=== PATIENT | male | born 2005 | race Caucasian/White ===

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

== ENCOUNTER → 2023-03-14 | Outpatient (CLI) | payer OTHER, SELFPAY ==
--- OUTSIDE RECORDS SUMMARY | 2023-03-14 16:00 | XMS RPT_ITS | CCD ---
Author Name Unknown Address [address] [place] [address] Organization [facility] Care Team Providers Care Business Systems Advisor Name Role Phone Marvin Malik MD Primary Care Provider Faith BOAT WORKER.Arianna HUSTON Primary Care Provider ARIANNA CUEVAS Attending Unavailable FAITH, ARIANNA Primary Care Unavailable ARIANNA CUEVAS Referring Unavailable FAITH, ARIANNA Primary Care Unavailable ARIANNA CUEVAS Referring Unavailable FAITH, ARIANNA Primary Care Unavailable ARIANNA CUEVAS Attending Unavailable DAVE, MARVIN P Primary Care Unavailable DERRICK GASTELUM Attending Unavailable DAVE, MARVIN P Primary Care Unavailable DERRICK GASTELUM Attending Unavailable DAVE, MARVIN P Primary Care Unavailable RAJDERRICK SEGURA Attending Unavailable DAVE, MARVIN P Primary Care Unavailable DERRICK GASTELUM Attending Unavailable DAVE, MARVIN P Primary Care Unavailable RAJDERRICK SEGURA Attending Unavailable DAVE, MARVIN P Primary Care Unavailable RAJDERRICK SEGURA Attending Unavailable DAVE, MARVIN P Primary Care Unavailable ARIANNA CUEVAS Attending Unavailable FAITH, ARIANNA Primary Care Unavailable Medications Current Medications Medication Drug Class(es) Dates Sig (Normalized) Sig (Original) hydrocortisone 25 mg/ml topical cream (2 sources) Corticosteroid Start: 07-16-2022 End: 07-31-2022 hydrocortisone 2.5 % cream Indications: Rash Apply 1 application to affected area twice daily for 15 days. Location: 3rd and 4th finger right hand 20 g 1 07/16/2022 07/31/2022 Active Completed/Discontinued Medications Medication Drug Class(es) Dates Sig (Normalized) Sig (Original) ergocalciferol 1.25 mg oral capsule (5 sources) Provitamin D2 Compound Start: 07-22-2022 End: 09-24-2022 take 1 capsule by mouth every week ergocalciferol 50,000 unit capsule (VITAMIN D2, DRISDOL) Indications: Vitamin D deficiency Take 1 capsule by mouth one time a week. 12 capsule 1 09/24/2022 Active Problems Active Problems Problem Classification Problem Date Documented Da te Episodic/Chronic Allergic reactions (1 source) Dermatitis, unspecified; Translations: [Eczema, unspecified type] Onset: 12-31-2022 Episodic Anxiety disorders (20 sources) Generalized anxiety disorder; Translations: [Generalized anxiety disorder] Onset: 01-01-2013 Chronic Miscellaneous mental health disorders (17 sources) Eating disorder; Translations: [Eating disorder, unspecified] Onset: 04-26-2020 04-28-2020 Chronic Mood disorders (20 sources) Severe recurrent major depression without psychotic features; Translations: [Major depressive disorder, recurrent severe without psychotic features] Onset: 04-25-2020 Chronic Nutritional deficiencies (3 sources) Vitamin D deficiency; Translations: [Vitamin D deficiency, unspecified] Onset: 09-23-2022 Chronic Other aftercare (1 source) Patient encounter status; Translations: [Other fpc (current) drug therapy] Episodic Other skin disorders (1 source) Loss of hair; Translations: [Nonscarring hair loss, unspecified] Episodic Other skin disorders (1 source) Eruption; Translations: [Rash and other nonspecific skin eruption] Episodic Residual codes; unclassified (18 sources) Difficulty sleeping ; Translations: [Sleep disorder, unspecified] Onset: 04-26-2020 04-28-2020 Episodic Unclassified (1 source) NO SHOW Past or Other Problems Problem Classification Problem Date Documented Da te Episodic/Chronic Administrative/social admission (17 sources) School problem; Translations: [Problems related to education and literacy, unspecified] Onset: 04-26-2020 04-26-2020 Episodic Other aftercare (1 source) Other buttermaker (current) drug therapy; Translations: [Encounter for long-term (current) use of medications] Onset: 03-04-2022 Episodic Other connective tissue disease (17 sources) Pain in lower limb; Translations: [Pain in leg, unspecified] Onset: 11-18-2013 04-26-2020 Episodic Other skin disorders (1 source) Nonscarring hair loss, unspecified; Translations: [Hair loss] Onset: 07-16-2022 Episodic Residual codes; unclassified (1 source) Sleep disorder, unspecified; Translations: [Sleep difficulties] Onset: 04-28-2020 Episodic Results Test Name Value Interpretation Reference Range Facil ity Vital Signs Date Time Vital Sign Value Performing Clinician Shagufta rodriguez 10-18-2022 13:50-0400 Body height 175.3 cm Arianna Cuevas BOAT WORKER.[employer] Work Phone: [facility] 10-18-2022 13:50-0400 Body weight 60.78 kg Arianna Cuevas BOAT WORKER.[employer] Work Phone: [facility] 10-18-2022 13:50-0400 Diastolic blood pressure 66 mm[Hg] Arianna Cuevas BOAT WORKER.[employer] Work Phone: [facility] 10-18-2022 13:50-0400 Heart rate 64 /min Arianna Cuevas BOAT WORKER.[employer] Work Phone: [facility] 10-18-2022 13:50-0400 Respiratory rate 14 /min Arianna Cuevas BOAT WORKER.[employer] Work Phone: [facility] 10-18-2022 13:50-0400 Systolic blood pressure 102 mm[Hg] Arianna Cuevas BOAT WORKER.[employer] Work Phone: [facility] 07-16-2022 13:19-0400 Body weight 59.42 kg Arianna Cuevas BOAT WORKER.[employer] Work Phone: [facility] 07-16-2022 13:19-0400 Diastolic blood pressure 78 mm[Hg] Arianna Cuevas BOAT WORKER.[employer] Work Phone: [facility] 07-16-2022 13:19-0400 Heart rate 72 /min Arianna Cuevas BOAT WORKER.[employer] Work Phone: [facility] 07-16-2022 13:19-0400 Respiratory rate 16 /min Arianna Cuevas BOAT WORKER.[employer] Work Phone: [facility] 07-16-2022 13:19-0400 Systolic blood pressure 112 mm[Hg] Arianna Faith BOAT WORKER.[employer] Work Phone: [facility] Encounters Encounter Date Encounter Type Care Provider Facility Start: 12-31-2022 End: 01-01-2023 ambulatory ARIANNA CUEVAS Facility:[facility] Start: 10-18-2022 End: 10-19-2022 ambulatory ARIANNA CUEVAS Facility:[facility] Start: 10-18-2022 Encounter for genera l adult medical examination without abnormal findings ARIANNA CUEVAS [facility] Start: 10-18-2022 End: 10-18-2022 Patient encounter procedure Arianna Cuevas APRN.ROBEL Work Phone: [facility] Procedures Date Procedure Procedure Detail Performing Clinician Start: 07-01-2022 Follow-up visit Follow Up DERRICK GASTELUM Start: 06-04-2021 Adult depression screening assessment Derrick Gastelum APRN.[employer] Work Phone: Start: 05-22-2021 Adult depression screening assessment Derrick Gastelum APRN.[employer] Work Phone: Start: 05-08-2021 Adult depression screening assessment Derrick Gastelum APRN.[employer] Work Phone: Plan of Treatment Date Care Activity Detail Author Start: 08-30-2025 Urine microalbumin profile DTA P,TDAP,TD (7 - Td or Tdap) [facility] Start: 10-19-2023 COVID-19 VACCINE (#1) COVID-19 VACCI NE (#1) [facility] Immunizations Immunization Date Immunization Notes Care Provider Fa cility 07-07-2020 meningococcal polysaccharide (groups A, C, Y and W-135) diphtheria toxoid conjugate vaccine (MCV4P) Derrick Gastelum APRN.[employer] Work Phone: [facility] Work Phone: 07-07-2020 varicella virus vaccine Dillon Gastelum APRN.[employer] Work Phone: [facility] Work Phone: 08-31-2015 meningococcal polysaccharide (groups A, C, Y and W-135) diphtheria toxoid conjugate vaccine (MCV4P) Derrick Gastelum APRN.[employer] Work Phone: [facility] 08-31-2015 tetanus toxoid, redu saba diphtheria toxoid, and acellular pertussis vaccine, adsorbed Derrick Rajguru BOAT WORKER.[facility] Work Phone: [facility] 12-16-2013 influenza, live, intranasal, quadrivalent Derrick Rajguru BOAT WORKER.[facility] Work Phone: [facility] 12-10-2012 influenza virus vacc ine, live, attenuated, for intranasal use Derrick Rajguru BOAT WORKER.[facility] Work Phone: [facility] Work Phone: 01-03-2012 influenza virus vacc ine, live, attenuated, for intranasal use Derrick Rajguru BOAT WORKER.[facility] Work Phone: [facility] Work Phone: 12-08-2009 influenza virus vacc ine, live, attenuated, for intranasal use Derrick Rajguru BOAT WORKER.[facility] Work Phone: [facility] 01-04-2008 diphtheria, tetanus toxoids and acellular pertussis vaccine Derrick Rajguru BOAT WORKER.[facility] Work Phone: [facility] Work Phone: 01-04-2008 influenza virus vacc ine, live, attenuated, for intranasal use Derrick Rajguru BOAT WORKER.[facility] Work Phone: [facility] Work Phone: 01-04-2008 measles, mumps and rubella virus vaccine Derrick Rajguru BOAT WORKER.[facility] Work Phone: [facility] Work Phone: 01-04-2008 poliovirus vaccine, inactivated Derrick Rajguru BOAT WORKER.[facility] Work Phone: [facility] Work Phone: 01-06-2007 influenza virus vacc ine, unspecified formulation Derrick Rajguru BOAT WORKER.[facility] Work Phone: [facility] Work Phone: 01-06-2006 influenza virus vacc ine, unspecified formulation Derrick Rajguru BOAT WORKER.[facility] Work Phone: [facility] Work Phone: 01-17-2005 influenza virus vacc ine, unspecified formulation Derrick Gastelum BOAT WORKER.[facility] Work Phone: [facility] Work Phone: 04-23-2004 diphtheria, tetanus toxoids and acellular pertussis vaccine Derrick Gastelum BOAT WORKER.[facility] Work Phone: [facility] Work Phone: 04-23-2004 pneumococcal conjuga te vaccine, 7 valent Derrick Gastelum BOAT WORKER.[facility] Work Phone: [facility] Work Phone: 01-16-2004 haemophilus influenz ae type b vaccine, HbOC conjugate Derrick Gastelum BOAT WORKER.[facility] Work Phone: [facility] Work Phone: 01-16-2004 measles, mumps and rubella virus vaccine Derrick Gastelum BOAT WORKER.[facility] Work Phone: [facility] Work Phone: 01-16-2004 varicella virus vaccine Dillon Gastelum BOAT WORKER.[facility] Work Phone: [facility] Work Phone: 2003 pneumococcal conjuga te vaccine, 7 valent Derrick Gastelum BOAT WORKER.[facility] Work Phone: [facility] Work Phone: 2003 haemophilus influenz ae type b vaccine, HbOC conjugate Derrick Gastelum BOAT WORKER.[facility] Work Phone: [facility] Work Phone: 2003 DTaP-hepatitis B and poliovirus vaccine Derrick Gastelum BOAT WORKER.[facility] Work Phone: [facility] Work Phone: 2003 haemophilus influenz ae type b vaccine, HbOC conjugate Derrick Gastelum BOAT WORKER.[facility] Work Phone: [facility] Work Phone: 2003 diphtheria, tetanus toxoids and acellular pertussis vaccine Derrick Gastelum BOAT WORKER.[employer] Work Phone: [facility] Work Phone: 2003 pneumococcal conjuga te vaccine, 7 valent Derrick Gastelum BOAT WORKER.[facility] Work Phone: [facility] Work Phone: 2003 poliovirus vaccine, inactivated Derrick Gastelum BOAT WORKER.[facility] Work Phone: [facility] Work Phone: 2003 diphtheria, tetanus toxoids and acellular pertussis vaccine Derricknaomie Gastelum BOAT WORKER.[facility] Work Phone: [facility] Work Phone: 2003 haemophilus influenz ae type b vaccine, HbOC conjugate Derricknaomie Gastelum BOAT WORKER.[facility] Work Phone: [facility] Work Phone: 2003 pneumococcal conjuga te vaccine, 7 valent Derrick Gastelum BOAT WORKER.[facility] Work Phone: [facility] Work Phone: 2003 poliovirus vaccine, inactivated Derrick Gastelum BOAT WORKER.[facility] Work Phone: [facility] Work Phone: 2003 influenza virus vacc ine, unspecified formulation Derrick Gastelum BOAT WORKER.[facility] Work Phone: [facility] Work Phone: 2003 hepatitis B vaccine, pediatric or pediatric/adolescent dosage Derrick Olivaresru BOAT WORKER.[facility] Work Phone: [facility] Work Phone: 2003 hepatitis B vaccine, pediatric or pediatric/adolescent dosage Derrick Irajguru BOAT WORKER.[facility] Work Phone: [facility] Work Phone: Payers Date Payer Category Payer Unknown MMO MMO [employer] [id number] 2021-Present [phone] [address] [place] [address] PPO [id number] 2021 Unknown [id number] 2021 Unknown [id number] Social History Date Type Detail Facility Start: 02-04-2011 End: 04-05-2020 Tobacco smoking status NHIS Never smoked tobacco [facility] Work Phone: Start: 02-04-2011 End: 04-05-2020 Tobacco use and exposure Smokeless tobacco non-user [facility] Work Phone: Start: 04-20-2021 End: 10-18-2022 Alcohol intake Current non-drinker of alcohol (finding) [facility] Start: 04-05-2020 Tobacco Comment dad smokes inside [facility] Start: 2003 Sex Assigned At Male [facility] History of tobacco use Passive smoker [facility] Work Phone: Start: 07-01-2022 End: 10-18-2022 History of Social function [facility] Start: 07-01-2022 End: 10-18-2022 Tobacco use panel [facility] Adult Depression Screening Assessment 5 [facility] Start: 02-01-2021 Gender identity Identifies as male gender (finding) [facility] Start: 02-01-2021 Sexual orientation Choose not to dis close [facility] Do you belong to any clubs or organizations such as mormon groups, unions, fraternal or athletic groups, or school groups? No [facility] Are you now , , , , never or living with a partner? Refused [facility] How often to you hav e a drink containing alcohol? Never [facility] Do you feel stress - tense, restless, nervous, or anxious, or unable to sleep at night because your mind is troubled all the time - these days [OSQ] Very much [facility] (I/We) worried jose antonio er (my/our) food would run out before (I/we) got money to buy more. DK or Refused [facility] Clinical Notes 05-08-2021 to 12-31-2022 Arianna Cuevas APRN.ROBEL - 10/18/2022 1:48 PM EDTTelephone Encounter - Evita Bah RN - 09/24/2022 2:44 PM EDTTelephone Encounter - Arianna Cuevas APRN.CNP - 09/24/2022 2:02 PM EDT Note Date & Type Note Facility 12-31-2022 Note HNO ID: [id number] Author: Arianna Cuevas APRN.[employer] Service: ? Author Type: Nurse Practitioner Type: Progress Notes Filed: 12/31/2022 4:09 PM Note Text: Chief Complaint Patient presents with: Rash Follow Up: Eczema on finger HPI Chas Amanda is a 17 year old male who presents here today for Above Complaints.. Patient presents for eczema. Patient reports he has derm appt on January 24 but currently eczema is worsening on his hand Past medical history, appointments, medications, allergies reviewed. Previous Medical History PAST MEDICAL HISTORY Diagnosis Date Allergic rhinitis resolved Routine or ritual circumcision Strabismus correct with patch at age 1 Previous Surgical History PAST SURGICAL HISTORY Procedure Laterality Date CIRCUMCISION W/CLAMP/OTH DEV W/BLOCK Family History FAMILY HISTORY Problem Relation Age of Onset other (anxiety) Mother on medication Diabetes Father other (anxiety) Father on medication other (rheumatoid arthritis) Maternal Grandmother hands and L knee No Known Problems Maternal Grandfather Ovarian cancer Paternal Grandmother Methicillin-resistant Staphylococcus Aureus Paternal Grandmother Asthma Paternal Grandfather Patient Allergies ALLERGIES No Known Allergies Current Medications Current Outpatient Medications on File Prior to Visit Medication Sig ergocalciferol 50,000 unit capsule (VITAMIN D2, DRISDOL) Take 1 capsule by mouth one time a week. lamoTRIgine (LAMICTAL) 100 mg tablet Take 1 tablet by mouth once daily. No current facility-administered medications on file prior to visit. Social History Social History Tobacco Use Smoking status: Passive Smoke Exposure - Never Smoker Smokeless tobacco: Never Tobacco comments: dad smokes inside Vaping Use Vaping Use: Never used Substance Use Topics Alcohol use: No Drug use: No Review of Symptoms REVIEW OF SYSTEMS SEE HPI EXAM: BP 126/72 Pulse 64 Resp 12 Wt 62.6 kg (138 lb) BMI 20.38 kg/m? General Appearance: Well appearing, alert, in no acute distress, well-hydrated, well nourished.. Skin: Positives: Erythema: fingers, Rash: flaky plaque like rash to interwebbing of fingers. Red but no warmth, swelling, or drainage noted. . Health Maintenance List HPV Vaccine(1 - Male 2-dose series) Never done Meningococcal B Vaccine: Consider Based On Risk(1 of 2 - Patient Seeks Protection) Never done Hepatitis C Screening Never done HIV Screening Never done Influenza Vaccine(1) due on 10/18/2022 Covid-19 Vaccine(1) due on 10/19/2023 DTaP,Tdap,Td Vaccine(7 - Td or Tdap) due on 08/30/2025 Hepatitis B Vaccine Completed Meningococcal Conjugate Vaccine Completed ASSESSMENT/PLAN: 1. Eczema, unspecified type - ICD9: 692.9, ICD10: L30.9 - Topical steriod tx with Rx for steriod cream/ointment- see orders - discussed skin care of rash - follow up if symptoms persist or worsen. - BETAMETHASONE DIPROPIONATE 0.05 % TOPICAL OINTMENT Arianna Cuevas APRN.[employer] [facility] 10-18-2022 Note HNO ID: [id number] Author: Arianna Cuevas APRN.[employer] Service: ? Author Type: Nurse Practitioner Type: Progress Notes Filed: 10/18/2022 2:08 PM Note Text: Chief Complaint Patient presents with: [facility] HPI Chas Amanda is a 17 year old male who presents here today for Above Complaints.. Patient presents to establish care. Patient has not made an appointment with dermatology for rash and hair loss yet. Past medical history, appointments, medications, allergies reviewed. Previous Medical History PAST MEDICAL HISTORY Diagnosis Date Allergic rhinitis resolved Routine or ritual circumcision Strabismus correct with patch at age 1 Previous Surgical History PAST SURGICAL HISTORY Procedure Laterality Date CIRCUMCISION W/CLAMP/OTH DEV W/BLOCK Family History FAMILY HISTORY Problem Relation Age of Onset other (anxiety) Mother on medication Diabetes Father other (anxiety) Father on medication other (rheumatoid arthritis) Maternal Grandmother hands and L knee No Known Problems Maternal Grandfather Ovarian cancer Paternal Grandmother Methicillin-resistant Staphylococcus Aureus Paternal Grandmother Asthma Paternal Grandfather Patient Allergies ALLERGIES No Known Allergies Current Medications Current Outpatient Medications on File Prior to Visit Medication Sig ergocalciferol 50,000 unit capsule (VITAMIN D2, DRISDOL) Take 1 capsule by mouth one time a week. lamoTRIgine (LAMICTAL) 100 mg tablet Take 1 tablet by mouth once daily. No current facility-administered medications on file prior to visit. Social History Social History Tobacco Use Smoking status: Passive Smoke Exposure - Never Smoker Smokeless tobacco: Never Tobacco comments: dad smokes inside Vaping Use Vaping Use: Never used Substance Use Topics Alcohol use: No Drug use: No Review of Symptoms REVIEW OF SYSTEMS GENERAL: No weight loss, malaise or fevers HEENT: No changes in hearing or vision, no nose bleeds or other nasal problems NECK: Negative for lumps, goiter, pain and significant neck swelling RESPIRATORY: Negative for cough, hemoptysis, wheezing, COPD, dyspnea or shortness of breath CARDIOVASCULAR: Negative for chest pain, leg swelling, hypertension, CHF or palpitations GI: No nausea, vomiting, or diarrhea : No history of dysuria, frequency or incontinence MUSCULOSKELETAL: Negative for joint pain or swelling, back pain or muscle pain SKIN: Positive for rash: derm consult previously provided PSYCH: sleep fragmented, Positive for sleep disturbance: difficulty falling asleep and easily angered HEMATOLOGY/LYMPHOLOGY: Negative for prolonged bleeding, bruising easily or swollen nodes ENDOCRINE: Negative for cold or heat intolerance, polyuria, polydipsia and goiter NEURO: No history of headaches, syncope, paralysis, seizures or tremors EXAM: BP 102/66 Pulse 64 Resp 14 Ht 175.3 cm (5' 9 ) Wt 60.8 kg (134 lb) BMI 19.79 kg/m? General Appearance: Well appearing, alert, in no acute distress, well-hydrated, well nourished.. Skin: Skin color, texture, turgor normal, no suspicious rashes or lesions. Neck: Supple, no adenopathy; thyroid symmetric, normal size, no bruits. Lungs: Lungs clear to auscultation. No wheezing, rhonchi, rales.. Heart: RRR without murmur, gallop, or rubs. No ectopy. Abdomen: Normal abdominal exam, Abdomen soft, non-tender. Bowel sounds normal. No masses, organomegaly Extremities: No deformities, edema, skin discoloration, clubbing or cyanosis. Good capillary refill. . Peripheral Pulses: Normal. Neurologic: Gait normal. Reflexes normal and symmetric. Sensation grossly intact. Health Maintenance List HPV VACCINE(1 - Male 2-dose series) Never done MENINGOCOCCAL B: Consider based on risk(1 of 2 - Patient Seeks Protection) Never done HEPATITIS C SCREENING Never done HIV SCREENING Never done INFLUENZA(1) due on 10/18/2022 COVID-19 VACCINE(1) due on 10/19/2023 DTAP,TDAP,TD(7 - Td or Tdap) due on 08/30/2025 HEPATITIS B Completed MENINGOCOCCAL CONJUGATE Completed ASSESSMENT/PLAN: 1. ANIVAL (generalized anxiety disorder) - ICD9: 300.02, ICD10: F41.1 (primary diagnosis) -Follows with Derrick, patient encouraged to make an appointment. Noncompliant with medication 2. Bipolar 2 disorder (HCC) - ICD9: 296.89, ICD10: F31.81 -See #1 3. Sleep difficulties - ICD9: 780.50, ICD10: G47.9 -See #1 4. Wellness examination - ICD9: V70.0, ICD10: Z00.00 - Counseled on healthy diet and regular exercise - Depression screening tool completed and reviewed with patient. Based on score and interview, patient is already diagnosed with depression and recommended continuing current plan of care. - Follow up for annual exam in one year Arianna Cuevas APRN.[facility] 10-18-2022 History of Presen t illness Narrative Chief Complaint Patient presents with: [facility] Chas Amanda is a 17 year old male who presents here today for Above Complaints.. Patient presents to [facility]. Patient has not made an appointment with dermatology for rash and hair loss yet. Past medical history, appointments, medications, allergies reviewed. Previous Medical History PAST MEDICAL HISTORY Diagnosis Date Allergic rhinitis resolved Routine or ritual circumcision Strabismus correct with patch at age 1 Previous Surgical History PAST SURGICAL HISTORY Procedure Laterality Date CIRCUMCISION W/CLAMP/OTH DEV W/BLOCK Family History FAMILY HISTORY Problem Relation Age of Onset other (anxiety) Mother on medication Diabetes Father other (anxiety) Father on medication other (rheumatoid arthritis) Maternal Grandmother hands and L knee No Known Problems Maternal Grandfather Ovarian cancer Paternal Grandmother Methicillin-resistant Staphylococcus Aureus Paternal Grandmother Asthma Paternal Grandfather Patient Allergies ALLERGIES No Known Allergies Current Medications Current Outpatient Medications on File Prior to Visit Medication Sig ergocalciferol 50,000 unit capsule (VITAMIN D2, DRISDOL) Take 1 capsule by mouth one time a week. lamoTRIgine (LAMICTAL) 100 mg tablet Take 1 tablet by mouth once daily. No current facility-administered medications on file prior to visit. Social History Social History Tobacco Use Smoking status: Passive Smoke Exposure - Never Smoker Smokeless tobacco: Never Tobacco comments: dad smokes inside Vaping Use Vaping Use: Never used Substance Use Topics Alcohol use: No Drug use: No Review of Symptoms REVIEW OF SYSTEMS GENERAL: No weight loss, malaise or fevers HEENT: No changes in hearing or vision, no nose bleeds or other nasal problems NECK: Negative for lumps, goiter, pain and significant neck swelling RESPIRATORY: Negative for cough, hemoptysis, wheezing, COPD, dyspnea or shortness of breath CARDIOVASCULAR: Negative for chest pain, leg swelling, hypertension, CHF or palpitations GI: No nausea, vomiting, or diarrhea : No history of dysuria, frequency or incontinence MUSCULOSKELETAL: Negative for joint pain or swelling, back pain or muscle pain SKIN: Positive for rash: derm consult previously provided PSYCH: sleep fragmented, Positive for sleep disturbance: difficulty falling asleep and easily angered HEMATOLOGY/LYMPHOLOGY: Negative for prolonged bleeding, bruising easily or swollen nodes ENDOCRINE: Negative for cold or heat intolerance, polyuria, polydipsia and goiter NEURO: No history of headaches, syncope, paralysis, seizures or tremors EXAM: BP 102/66 Pulse 64 Resp 14 Ht 175.3 cm (5' 9 ) Wt 60.8 kg (134 lb) BMI 19.79 kg/m General Appearance: Well appearing, alert, in no acute distress, well-hydrated, well nourished.. Skin: Skin color, texture, turgor normal, no suspicious rashes or lesions. Neck: Supple, no adenopathy; thyroid symmetric, normal size, no bruits. Lungs: Lungs clear to auscultation. No wheezing, rhonchi, rales.. Heart: RRR without murmur, gallop, or rubs. No ectopy. Abdomen: Normal abdominal exam, Abdomen soft, non-tender. Bowel sounds normal. No masses, organomegaly Extremities: No deformities, edema, skin discoloration, clubbing or cyanosis. Good capillary refill. . Peripheral Pulses: Normal. Neurologic: Gait normal. Reflexes normal and symmetric. Sensation grossly intact. Health Maintenance List HPV VACCINE(1 - Male 2-dose series) Never done MENINGOCOCCAL B: Consider based on risk(1 of 2 - Patient Seeks Protection) Never done HEPATITIS C SCREENING Never done HIV SCREENING Never done INFLUENZA(1) due on 10/18/2022 COVID-19 VACCINE(1) due on 10/19/2023 DTAP,TDAP,TD(7 - Td or Tdap) due on 08/30/2025 HEPATITIS B Completed MENINGOCOCCAL CONJUGATE Completed ASSESSMENT/PLAN: 1. ANIVAL (generalized anxiety disorder) - ICD9: 300.02, ICD10: F41.1 (primary diagnosis) -Follows with Derrick, patient encouraged to make an appointment. Noncompliant with medication 2. Bipolar 2 disorder (HCC) - ICD9: 296.89, ICD10: F31.81 -See #1 3. Sleep difficulties - ICD9: 780.50, ICD10: G47.9 -See #1 4. Wellness examination - ICD9: V70.0, ICD10: Z00.00 - Counseled on healthy diet and regular exercise - Depression screening tool completed and reviewed with patient. Based on score and interview, patient is already diagnosed with depression and recommended continuing current plan of care. - Follow up for annual exam in one year Arianna Cuevas APRN.ROBEL documented in this encounter [facility] 09-24-2022 Miscellaneous Notes Formattin g of this note might be different from the original. Call placed to patient with no answer. Voicemail left for patient to return call and ask to speak to a triage nurse to receive provider message. Evita Bah, STUART Please let patient know his vitamin d has improved but is still low. I have sent another prescription. documented in this encounter [facility] 09-17-2022 Miscellaneous Notes Formattin g of this note might be different from the original. Notified pt/Mother of local Derm Providers and P#'s to contact to schedule. Once scheduled asked they notify the office so we can fax referral paperwork to there office. Concepción Chapa Ma documented in this encounter [facility] 07-22-2022 Miscellaneous Notes Formattin g of this note might be different from the original. Pt mother notified, has scheduled the lab appt in 8 weeks. Please send rx for Vitamin D to [facility]. Sandra Darling Ma Please let patient know his vitamin D level is low. Patient should start Vitamin D 50,000 international unit(s) once weekly for 8 weeks and we will recheck his labs in 8 weeks. This lab work has been ordered and can be completed on or around 09/21/2022 documented in this encounter [facility] 07-16-2022 Note HNO ID: [id number] Author: Arianna Cuevas APRN.ROBEL Service: ? Author Type: Nurse Practitioner Type: Progress Notes Filed: 07/16/2022 1:30 PM Note Text: Chief Complaint Patient presents with: Rash: Rash on right hand Hair Loss HPI Chas Amanda is a 17 year old male who presents here today for Above Complaints.. Patient presents today for hair loss and rash to right 3rd and 4th finger. Patient states the rash has been there since December. Patient tried steroid cream on it last week which did help. Patient reports receding hairline as well as hair loss. Past medical history, appointments, medications, allergies reviewed. Previous Medical History PAST MEDICAL HISTORY Diagnosis Date Allergic rhinitis resolved Routine or ritual circumcision Strabismus correct with patch at age 1 Previous Surgical History PAST SURGICAL HISTORY Procedure Laterality Date CIRCUMCISION W/CLAMP/OTH DEV W/BLOCK Family History FAMILY HISTORY Problem Relation Age of Onset other (anxiety) Mother on medication Diabetes Father other (anxiety) Father on medication other (rheumatoid arthritis) Maternal Grandmother hands and L knee No Known Problems Maternal Grandfather Ovarian cancer Paternal Grandmother Methicillin-resistant Staphylococcus Aureus Paternal Grandmother Asthma Paternal Grandfather Patient Allergies ALLERGIES No Known Allergies Current Medications Current Outpatient Medications on File Prior to Visit Medication Sig lamoTRIgine (LAMICTAL) 100 mg tablet Take 1 tablet by mouth once daily. No current facility-administered medications on file prior to visit. Social History Social History Tobacco Use Smoking status: Passive Smoke Exposure - Never Smoker Smokeless tobacco: Never Tobacco comments: dad smokes inside Vaping Use Vaping Use: Never used Substance Use Topics Alcohol use: No Drug use: No Review of Symptoms REVIEW OF SYSTEMS SEE HPI EXAM: BP 112/78 Pulse 72 Resp 16 Wt 59.4 kg (131 lb) General Appearance: Well appearing, alert, in no acute distress, well-hydrated, well nourished.. Skin: Positives: Rash: scaly dry rash to skin between 3rd and 4th finger. Receding hairline with patchy hair loss. . Health Maintenance List COVID-19 VACCINE(1) Never done HPV VACCINE(1 - Male 2-dose series) Never done MENINGOCOCCAL B: Consider based on risk(1 of 2 - Risk Bexsero 2-dose series) Never done HEPATITIS C SCREENING Never done HIV SCREENING Never done INFLUENZA(Season Ended) due on 10/18/2022 DTAP,TDAP,TD(7 - Td or Tdap) due on 08/30/2025 HEPATITIS B Completed MENINGOCOCCAL CONJUGATE Completed ASSESSMENT/PLAN: 1. Hair loss - ICD9: 704.00, ICD10: L65.9 (primary diagnosis) - CBC + DIFF - TSH BLD - T3 BLD - T4 FREE/FREE THYROX - VITAMIN D 25 HYDROXY - VITAMIN B7 (BIOTIN) - VITAMIN B12 BLOOD 2. Rash - ICD9: 782.1, ICD10: R21 - HYDROCORTISONE 2.5 % TOPICAL CREAM Arianna Cuevas APRN.[facility] 07-16-2022 History of Presen t illness Narrative Chief Complaint Patient presents with: Rash: Rash on right hand Hair Loss HPI Chas Amanda is a 17 year old male who presents here today for Above Complaints.. Patient presents today for hair loss and rash to right 3rd and 4th finger. Patient states the rash has been there since December. Patient tried steroid cream on it last week which did help. Patient reports receding hairline as well as hair loss. Past medical history, appointments, medications, allergies reviewed. Previous Medical History PAST MEDICAL HISTORY Diagnosis Date Allergic rhinitis resolved Routine or ritual circumcision Strabismus correct with patch at age 1 Previous Surgical History PAST SURGICAL HISTORY Procedure Laterality Date CIRCUMCISION W/CLAMP/OTH DEV W/BLOCK Family History FAMILY HISTORY Problem Relation Age of Onset other (anxiety) Mother on medication Diabetes Father other (anxiety) Father on medication other (rheumatoid arthritis) Maternal Grandmother hands and L knee No Known Problems Maternal Grandfather Ovarian cancer Paternal Grandmother Methicillin-resistant Staphylococcus Aureus Paternal Grandmother Asthma Paternal Grandfather Patient Allergies ALLERGIES No Known Allergies Current Medications Current Outpatient Medications on File Prior to Visit Medication Sig lamoTRIgine (LAMICTAL) 100 mg tablet Take 1 tablet by mouth once daily. No current facility-administered medications on file prior to visit. Social History Social History Tobacco Use Smoking status: Passive Smoke Exposure - Never Smoker Smokeless tobacco: Never Tobacco comments: dad smokes inside Vaping Use Vaping Use: Never used Substance Use Topics Alcohol use: No Drug use: No Review of Symptoms REVIEW OF SYSTEMS SEE HPI EXAM: BP 112/78 Pulse 72 Resp 16 Wt 59.4 kg (131 lb) General Appearance: Well appearing, alert, in no acute distress, well-hydrated, well nourished.. Skin: Positives: Rash: scaly dry rash to skin between 3rd and 4th finger. Receding hairline with patchy hair loss. . Health Maintenance List COVID-19 VACCINE(1) Never done HPV VACCINE(1 - Male 2-dose series) Never done MENINGOCOCCAL B: Consider based on risk(1 of 2 - Risk Bexsero 2-dose series) Never done HEPATITIS C SCREENING Never done HIV SCREENING Never done INFLUENZA(Season Ended) due on 10/18/2022 DTAP,TDAP,TD(7 - Td or Tdap) due on 08/30/2025 HEPATITIS B Completed MENINGOCOCCAL CONJUGATE Completed ASSESSMENT/PLAN: 1. Hair loss - ICD9: 704.00, ICD10: L65.9 (primary diagnosis) - CBC + DIFF - TSH BLD - T3 BLD - T4 FREE/FREE THYROX - VITAMIN D 25 HYDROXY - VITAMIN B7 (BIOTIN) - VITAMIN B12 BLOOD 2. Rash - ICD9: 782.1, ICD10: R21 - HYDROCORTISONE 2.5 % TOPICAL CREAM Arianna Cuevas APRN.ROBEL documented in this encounter [facility] 07-01-2022 Note HNO ID: [id number] Author: Derrick Gastelum APRN.ROBEL Service: ? Author Type: Nurse Practitioner Type: Progress Notes Filed: 07/01/2022 10:35 PM Note Text: PSYC FOLLOW UP - PSYCHIATRIC PROGRESS NOTE DIAGNOSIS: Bipolar 2 disorder Generalized Anxiety Disorder GAF: -60-51 Moderate symptoms or moderate difficulty in social, occupational or school functioning. TREATMENT PLAN: Increase Lamictal to address mood related symptoms. Utilize hydroxyzine as needed to help with anxiety symptoms. Patient would like to be assessed for ADHD. Referral provided to transfer psychiatric care to the community. Medication Update: Lamictal 100 mg - take 1 tablet once daily. Continue hydroxyzine as needed. The effects and side effects of all the medications were reviewed in detail with the patient. He is aware of the rash side effect related to Lamictal. Patient is in agreement with the treatment plan and aware to reach out with any questions, concerns, or worsening of symptoms prior to the next appointment. CC: Follow up for psychiatric medication management With the patient consent, visit was performed virtually. I have communicated my name and active licensure. The patient's identity and physical location were verified at the time of this visit. Either the patient or their legal customer operations representative has been informed of the risks and benefits of -- and alternatives to -- treatment through a remote evaluation and consents to proceed with the evaluation remotely. HPI: Chas Amanda is a 17 year old Male with a history of Bipolar 2 disorder and ANIVAL presenting today for follow-up. Date of last visit: 06/03/2022 Plan from last visit: Increase Lamictal to address his mood related symptoms. Utilize hydroxyzine as needed to manage anxiety. Follow up in 4 weeks. Today Chas shares that he is doing well. He has not increased the Lamictal to 100 mg dose yet. He has been better at remembering to take the Lamictal 75 mg dose. He has been taking that for over 2 weeks. In agreement to try a higher dose of Lamictal. He denies any side effects from the Lamictal. Has not needed to use the hydroxyzine. He is going to sleep earlier and wakes up around 8 to 10 am. He has been playing basketball and continues to enjoy playing video games with his friends. He is still working on getting his social security card. This is a barrier to him getting a job and license. Shares that his father has been upset about the situation but mother has been okay. Reports that his appetite decreased for a short time but it has normalized. Feels that when his mood is low, his appetite decrease. He has talked to his parents about his desire to be tested for ADHD. His father has been diagnosed and treated for ADHD. Interval Progress: Slightly Improved Risks and benefits of the medication, including any black box warnings, were discussed with the patient. Social History: See HPI PATIENT DATA: Generalized Anxiety Disorder Scale (ANIVAL-7) ANIVAL - 7 SCORES 05/06/2022 06/03/2022 07/01/2022 ANIVAL-7 Score 21 20 19 (0-4) minimal anxiety, (5-9) mild anxiety, (10-14) moderate anxiety, (15-21) severe anxiety Patient Health Questionnaire (PHQ-9) PHQ-9 05/06/2022 06/03/2022 07/01/2022 Score 22 21 20 (0-4) minimal depression, (5-9) mild depression, (10-14) moderate depression, (15-19) moderately severe depression, (20-27) severe depression ROS: See HPI General: Negative for fever, malaise, unintentional weight loss HEENT: Negative for recent changes in vision or hearing, no nasal drainage Respiratory: Negative for cough, wheezing or SOB Cardiovascular: Negative for chest pain GI: Negative for nausea, vomiting, change in bowel habits MUSCULOSKELETAL: Negative for acute back or joint pain SKIN: Negative for rash NEURO: Negative for headaches, seizures, focal neurological deficits All other systems negative. VITAL SIGNS: BP Temp Pulse Resp SpO2 MENTAL STATUS EXAMINATION: Appearance: Appropriately groomed, appears stated age Behavior: Appropriately engaged Psychomotor: No psychomotor agitation Cognition Level of Consciousness: Awake and alert. No fluctuation in wakefulness. Orientation: Grossly oriented Memory: Intact Attention/Concentration: Good Fund of Knowledge: Able to demonstrate an awareness of current events. Mood: Sad Affect: Congruent to mood Speech/Language: Appropriate tone, prosody, noé, phonetics, and syntax Thought Form: Goal-directed. No loosening of associations. Thought Content: No delusions noted or endorsed. Perceptual Disturbances: Did not appear to respond to auditory stimuli. Safety: Suicidal Ideations: No suicidal ideation, intent or plan. Homicidal Ideations: No homicidal ideation, intent or plan. Insight: Appropriate Judgment: Appropriate I spent a total of 28 minutes on the date of the service which included preparing to see the patient, [id number] patien (more content not included)... [facility] 07-01-2022 History of Presen t illness Narrative Images from the original note were not included. PSYC FOLLOW UP - PSYCHIATRIC PROGRESS NOTE DIAGNOSIS: Bipolar 2 disorder Generalized Anxiety Disorder GAF: -60-51 Moderate symptoms or moderate difficulty in social, occupational or school functioning. TREATMENT PLAN: Increase Lamictal to address mood related symptoms. Utilize hydroxyzine as needed to help with anxiety symptoms. Patient would like to be assessed for ADHD. Referral provided to transfer psychiatric care to the community. Medication Update: Lamictal 100 mg - take 1 tablet once daily. Continue hydroxyzine as needed. The effects and side effects of all the medications were reviewed in detail with the patient. He is aware of the rash side effect related to Lamictal. Patient is in agreement with the treatment plan and aware to reach out with any questions, concerns, or worsening of symptoms prior to the next appointment. CC: Follow up for psychiatric medication management With the patient consent, visit was performed virtually. I have communicated my name and active licensure. The patient's identity and physical location were verified at the time of this visit. Either the patient or their legal customer operations representative has been informed of the risks and benefits of -- and alternatives to -- treatment through a remote evaluation and consents to proceed with the evaluation remotely. HPI: Chas Amanda is a 17 year old Male with a history of Bipolar 2 disorder and ANIVAL presenting today for follow-up. Date of last visit: 06/03/2022 Plan from last visit: Increase Lamictal to address his mood related symptoms. Utilize hydroxyzine as needed to manage anxiety. Follow up in 4 weeks. Today Chas shares that he is doing well. He has not increased the Lamictal to 100 mg dose yet. He has been better at remembering to take the Lamictal 75 mg dose. He has been taking that for over 2 weeks. In agreement to try a higher dose of Lamictal. He denies any side effects from the Lamictal. Has not needed to use the hydroxyzine. He is going to sleep earlier and wakes up around 8 to 10 am. He has been playing basketball and continues to enjoy playing video games with his friends. He is still working on getting his social security card. This is a barrier to him getting a job and license. Shares that his father has been upset about the situation but mother has been okay. Reports that his appetite decreased for a short time but it has normalized. Feels that when his mood is low, his appetite decrease. He has talked to his parents about his desire to be tested for ADHD. His father has been diagnosed and treated for ADHD. Interval Progress: Slightly Improved Risks and benefits of the medication, including any black box warnings, were discussed with the patient. Social History: See HPI PATIENT DATA: Generalized Anxiety Disorder Scale (ANIVAL-7) ANIVAL - 7 SCORES 05/06/2022 06/03/2022 07/01/2022 ANIVAL-7 Score 21 20 19 (0-4) minimal anxiety, (5-9) mild anxiety, (10-14) moderate anxiety, (15-21) severe anxiety Patient Health Questionnaire (PHQ-9) PHQ-9 05/06/2022 06/03/2022 07/01/2022 Score 22 21 20 (0-4) minimal depression, (5-9) mild depression, (10-14) moderate depression, (15-19) moderately severe depression, (20-27) severe depression ROS: See HPI General: Negative for fever, malaise, unintentional weight loss HEENT: Negative for recent changes in vision or hearing, no nasal drainage Respiratory: Negative for cough, wheezing or SOB Cardiovascular: Negative for chest pain GI: Negative for nausea, vomiting, change in bowel habits MUSCULOSKELETAL: Negative for acute back or joint pain SKIN: Negative for rash NEURO: Negative for headaches, seizures, focal neurological deficits All other systems negative. VITAL SIGNS: BP Temp Pulse Resp SpO2 MENTAL STATUS EXAMINATION: Appearance: Appropriately groomed, appears stated age Behavior: Appropriately engaged Psychomotor: No psychomotor agitation Cognition Level of Consciousness: Awake and alert. No fluctuation in wakefulness. Orientation: Grossly oriented Memory: Intact Attention/Concentration: Good Fund of Knowledge: Able to demonstrate an awareness of current events. Mood: Sad Affect: Congruent to mood Speech/Language: Appropriate tone, prosody, noé, phonetics, and syntax Thought Form: Goal-directed. No loosening of associations. Thought Content: No delusions noted or endorsed. Perceptual Disturbances: Did not appear to respond to auditory stimuli. Safety: Suicidal Ideations: No suicidal ideation, intent or plan. Homicidal Ideations: No homicidal ideation, intent or plan. Insight: Appropriate Judgment: Appropriate I spent a total of 28 minutes on the date of the service which included preparing to see the patient, [id number] patient care, completing clinical documentation, and counseling and educating the patient/family/caregiver, ordering medications/labs, and communicating with other healthcare providers. Derrick Gastelum APRN.CNP July 01, 2022 4:08 PM This note was partially generated using [employer] voice recognition system. Note was reviewed for accuracy. There may be minor misspellings or grammar miscues with [employer] voice recognition. documented in this encounter [facility] 06-03-2022 Note HNO ID: [id number] Author: Derrick Gastelum APRN.CNP Service: ? Author Type: Nurse Practitioner Type: Progress Notes Filed: 06/07/2022 10:38 PM Note Text: PSYC FOLLOW UP - PSYCHIATRIC PROGRESS NOTE DIAGNOSIS: Bipolar 2 disorder Generalized Anxiety Disorder GAF: -60-51 Moderate symptoms or moderate difficulty in social, occupational or school functioning. TREATMENT PLAN: Increase Lamictal to address his mood related symptoms. Utilize hydroxyzine as needed to manage anxiety. Follow up in 4 weeks. Medication Update: Lamictal 100 mg - take 1 tablet once daily 2. Continue Hydroxyzine as needed. The effects and side effects of all the medications were reviewed in detail with the patient. He is aware of the rash side effect related to Lamictal. Patient is in agreement with the treatment plan and aware to reach out with any questions, concerns, or worsening of symptoms prior to the next appointment. CC: Follow up regarding mood and anxiety. With the patient consent, visit was performed virtually. I have communicated my name and active licensure. The patient's identity and physical location were verified at the time of this visit. Either the patient or their legal customer operations representative has been informed of the risks and benefits of -- and alternatives to -- treatment through a remote evaluation and consents to proceed with the evaluation remotely. HPI: Chas Amanda is a 17 year old Male with a history of ANIVAL and Bipolar disorder presenting today for follow-up. Date of last visit: 05/06/2022 Plan from last visit: Increase Lamictal gradually to address mood related symptoms. Utilize hydroxyzine as needed to manage anxiety symptoms. Utilize melatonin to help with sleep quality. 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 Follow up in 4 weeks. Today Chas shares that he is doing well. 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 He has been more consistent in taking the Lamictal. He has not increased the Lamictal over 50 mg. Tolerating it without side effects. He is in agreement to try a higher dose. Uses hydroxyzine as needed to help with anxiety symptoms. He is going to the gym once a week. Plays basketball every day. One of his friend joins him when he is not working. He plays video games with friends and talks to them online. Denies any intrusive negative thoughts currently. His father still wants him to get a job. Has not talked to mom lately. They were slightly mad at him for losing the social security card. He has been having a hard time focusing on one thing at a time. He gets side tracked easily. Has a hard time retaining information. He gets distracted easily. I have always had a forgetful mind . Shares that it has been especially worse in the past month. He denies any substance use. He shares that his appetite has been very low. He had 3 pancakes with syrup and water for breakfast. His snack is chips usually. He had pizza last night with pepperoni and cheese. Interval Progress: Slightly improved Risks and benefits of the medication, including any black box warnings, were discussed with the patient. Social History: See HPI PATIENT DATA: Generalized Anxiety Disorder Scale (ANIVAL-7) ANIVAL - 7 SCORES 03/27/2022 05/06/2022 06/03/2022 ANIVAL-7 Score 21 21 20 (0-4) minimal anxiety, (5-9) mild anxiety, (10-14) moderate anxiety, (15-21) severe anxiety Patient Health Questionnaire (PHQ-9) PHQ-9 03/27/2022 05/06/2022 06/03/2022 Score 22 22 21 (0-4) minimal depression, (5-9) mild depression, (10-14) moderate depression, (15-19) moderately severe depression, (20-27) severe depression ROS: See HPI General: Negative for fever, malaise, unintentional weight loss HEENT: Negative for recent changes in vision or hearing, no nasal drainage Respiratory: Negative for cough, wheezing or SOB Cardiovascular: Negative for chest pain GI: Negative for nausea, vomiting, change in bowel habits MUSCULOSKELETAL: Negative for acute back or joint pain SKIN: Negative for rash NEURO: Negative for headaches, seizures, focal neurological deficits All other systems negative. VITAL SIGNS: BP Temp Pulse Resp SpO2 MENTAL STATUS EXAMINATION: Appearance: Appropriately groomed, appears stated age Behavior: Appropriately engaged Psychomotor: No psychomotor agitation Cognition Level of Consciousness: Awake and alert. No fluctuation in wakefulness. Orientation: Grossly oriented Memory: Intact Attention/Concentration: Good Fund of Knowledge: Able to demonstrate an awareness of current events. Mood: Sad Affect: congruent to mood Speech/Language: Appropriate tone, prosody, noé, phonetics, and syntax Thought Form: Goal-directed. No loosening of associations. Thought Content: No delusions noted or endor (more content not included)... [facility] 06-03-2022 History of Presen t illness Narrative Images from the original note were not included. PSYC FOLLOW UP - PSYCHIATRIC PROGRESS NOTE DIAGNOSIS: Bipolar 2 disorder Generalized Anxiety Disorder GAF: -60-51 Moderate symptoms or moderate difficulty in social, occupational or school functioning. TREATMENT PLAN: Increase Lamictal to address his mood related symptoms. Utilize hydroxyzine as needed to manage anxiety. Follow up in 4 weeks. Medication Update: Lamictal 100 mg - take 1 tablet once daily 2. Continue Hydroxyzine as needed. The effects and side effects of all the medications were reviewed in detail with the patient. He is aware of the rash side effect related to Lamictal. Patient is in agreement with the treatment plan and aware to reach out with any questions, concerns, or worsening of symptoms prior to the next appointment. CC: Follow up regarding mood and anxiety. With the patient consent, visit was performed virtually. I have communicated my name and active licensure. The patient's identity and physical location were verified at the time of this visit. Either the patient or their legal customer operations representative has been informed of the risks and benefits of -- and alternatives to -- treatment through a remote evaluation and consents to proceed with the evaluation remotely. HPI: Chas Amanda is a 17 year old Male with a history of ANIVAL and Bipolar disorder presenting today for follow-up. Date of last visit: 05/06/2022 Plan from last visit: Increase Lamictal gradually to address mood related symptoms. Utilize hydroxyzine as needed to manage anxiety symptoms. Utilize melatonin to help with sleep quality. 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 Follow up in 4 weeks. Today Chas shares that he is doing well. 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 He has been more consistent in taking the Lamictal. He has not increased the Lamictal over 50 mg. Tolerating it without side effects. He is in agreement to try a higher dose. Uses hydroxyzine as needed to help with anxiety symptoms. He is going to the gym once a week. Plays basketball every day. One of his friend joins him when he is not working. He plays video games with friends and talks to them online. Denies any intrusive negative thoughts currently. His father still wants him to get a job. Has not talked to mom lately. They were slightly mad at him for losing the social security card. He has been having a hard time focusing on one thing at a time. He gets side tracked easily. Has a hard time retaining information. He gets distracted easily. I have always had a forgetful mind . Shares that it has been especially worse in the past month. He denies any substance use. He shares that his appetite has been very low. He had 3 pancakes with syrup and water for breakfast. His snack is chips usually. He had pizza last night with pepperoni and cheese. Interval Progress: Slightly improved Risks and benefits of the medication, including any black box warnings, were discussed with the patient. Social History: See HPI PATIENT DATA: Generalized Anxiety Disorder Scale (ANIVAL-7) ANIVAL - 7 SCORES 03/27/2022 05/06/2022 06/03/2022 ANIVAL-7 Score 21 21 20 (0-4) minimal anxiety, (5-9) mild anxiety, (10-14) moderate anxiety, (15-21) severe anxiety Patient Health Questionnaire (PHQ-9) PHQ-9 03/27/2022 05/06/2022 06/03/2022 Score 22 22 21 (0-4) minimal depression, (5-9) mild depression, (10-14) moderate depression, (15-19) moderately severe depression, (20-27) severe depression ROS: See HPI General: Negative for fever, malaise, unintentional weight loss HEENT: Negative for recent changes in vision or hearing, no nasal drainage Respiratory: Negative for cough, wheezing or SOB Cardiovascular: Negative for chest pain GI: Negative for nausea, vomiting, change in bowel habits MUSCULOSKELETAL: Negative for acute back or joint pain SKIN: Negative for rash NEURO: Negative for headaches, seizures, focal neurological deficits All other systems negative. VITAL SIGNS: BP Temp Pulse Resp SpO2 MENTAL STATUS EXAMINATION: Appearance: Appropriately groomed, appears stated age Behavior: Appropriately engaged Psychomotor: No psychomotor agitation Cognition Level of Consciousness: Awake and alert. No fluctuation in wakefulness. Orientation: Grossly oriented Memory: Intact Attention/Concentration: Good Fund of Knowledge: Able to demonstrate an awareness of current events. Mood: Sad Affect: congruent to mood Speech/Language: Appropriate tone, prosody, noé, phonetics, and syntax Thought Form: Goal-directed. No loosening of associations. Thought Content: No delusions noted or endorsed. Perceptual Disturbances: Did not appear to respond to auditory stimuli. Safety: Suicidal Ideations: No suicidal ideation, intent or plan. Homicidal Ideations: No homicidal ideation, intent or plan. Insight: Appropriate Judgment: Appropriate I spent a total of 28 minutes on the date of the service which included preparing to see the patient, [id number] patient care, completing clinical documentation, and counseling and educating the patient/family/caregiver, ordering medications/labs. Derrick Gastelum APRN.[facility] June 03, 2022 4:34 PM This note was partially generated using Dragon voice recognition system. Note was reviewed for accuracy. There may be minor misspellings or grammar miscues with [employer] voice recognition. documented in this encounter [facility] 05-06-2022 Instructions Derrick Gastelum APRN.CNP - 05/06/2022 6:59 PM EDT Benjamin Doherty, It was good to talk with you today. Below is a summary of the plan that we discussed during your appointment for reference. Of course, if you have any questions or concerns do not hesitate to reach out to me via a message or call. Best, Derrick Gastelum APRN.CNP PLAN AND FOLLOW UP: YOU SHOULD SEEK IMMEDIATE MEDICAL ATTENTION AT THE NEAREST EMERGENCY DEPARTMENT OR BY CALLING 911, IF ANY OF THE FOLLOWING OCCURS: - New or worsening thoughts of harming yourself (suicidal thoughts) or others (homicidal thoughts) - Not feeling safe at home or worrying about your ability to remain safe at home If you are having thoughts of harming yourself or others, then you can: - Call the National Suicide Hotline at 7-907-AIXMJGS ( ) or 3-776-440-TALK (4032) - Text 4HIRZ to 845005 Medication Update: Lamictal 25 mg - take 2 tablets once daily for 14 days, then take 3 tablets once daily after that. 2. Utilize Hydroxyzine at the same dose as needed to address anxiety symptoms. Next appointment: --Schedule in 4 weeks or sooner if needed -- You may call the department appointment line at [phone] to schedule your appointment. -- Please call my nurse Renee at [phone] or send me a message in Know[employer] with any questions or concerns between appointments. documented in this encounter [facility] 05-06-2022 Note HNO ID: [id number] Author: Derrick Gastelum APRN.CNP Service: ? Author Type: Nurse Practitioner Type: Progress Notes Filed: 05/06/2022 7:00 PM Note Text: PSYC FOLLOW UP - PSYCHIATRIC PROGRESS NOTE DIAGNOSIS: Bipolar 2 disorder Generalized Anxiety Disorder GAF: -60-51 Moderate symptoms or moderate difficulty in social, occupational or school functioning. TREATMENT PLAN: Increase Lamictal gradually to address mood related symptoms. Utilize hydroxyzine as needed to manage anxiety symptoms. Utilize melatonin to help with sleep quality. 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 Follow up in 4 weeks. Medication Update: Lamictal 25 mg - take 2 tablets once daily for 14 days, then take 3 tablets once daily after that. 2. Utilize Hydroxyzine at the same dose as needed to address anxiety symptoms. The effects and side effects of all the medications were reviewed in detail with the patient. He is aware of the rash side effect associated with Lamictal. Patient is in agreement with the treatment plan and aware to reach out with any questions, concerns, or worsening of symptoms prior to the next appointment. CC: Follow up regarding mood and anxiety With the patient consent, visit was performed virtually. I have communicated my name and active licensure. The patient's identity and physical location were verified at the time of this visit. Either the patient or their legal customer operations representative has been informed of the risks and benefits of -- and alternatives to -- treatment through a remote evaluation and consents to proceed with the evaluation remotely. HPI: Chas Amanda is a 17 year old Male with a history of Bipolar disorder and ANIVAL presenting today for follow-up. Date of last visit: 03/27/2022 Plan from last visit: Start Lamictal to address his mood related symptoms. Continue hydroxyzine as needed to help with anxiety. Follow up in 6 weeks. Today Chas shares that he is doing okay. He feels that Lamictal is helping with his mood. He has a hard time taking the medication consistently. He has not increased it more than 25 mg yet. He has not missed it more than 2 days in the row. He has noticed that his sadness has improved. It feels a little bit better . Denies any intense suicidal thoughts. He would like to try to go to sleep earlier. He is getting 7 to 8 hours of sleep. He would like to try melatonin and is going to ask his mother to get the medication for him. He has not been able to work. 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 He needs to pass the written portion and practice driving. Feels that parents are too busy. We discussed patient being more proactive regarding this. He has been spending his time playing video games. He goes out to play basketball at the gym with a friend. His friends are usually working 2nd shift and it is hard to get together with them. Has only taken hydroxyzine 4 times since last visit as anxiety has been more manageable. Interval Progress: Slightly improved Risks and benefits of the medication, including any black box warnings, were discussed with the patient. Social History: See HPI PATIENT DATA: Generalized Anxiety Disorder Scale (ANIVAL-7) ANIVAL - 7 SCORES 03/03/2022 03/27/2022 05/06/2022 ANIVAL-7 Score 21 21 21 (0-4) minimal anxiety, (5-9) mild anxiety, (10-14) moderate anxiety, (15-21) severe anxiety Patient Health Questionnaire (PHQ-9) PHQ-9 03/03/2022 03/27/2022 05/06/2022 Score 21 22 22 (0-4) minimal depression, (5-9) mild depression, (10-14) moderate depression, (15-19) moderately severe depression, (20-27) severe depression ROS: See HPI General: Negative for fever, malaise, unintentional weight loss HEENT: Negative for recent changes in vision or hearing, no nasal drainage Respiratory: Negative for cough, wheezing or SOB Cardiovascular: Negative for chest pain GI: Negative for nausea, vomiting, change in bowel habits MUSCULOSKELETAL: Negative for acute back or joint pain SKIN: Negative for rash NEURO: Negative for headaches, seizures, focal neurological deficits All other systems negative. VITAL SIGNS: BP Temp Pulse Resp SpO2 MENTAL STATUS EXAMINATION: Appearance: Appropriately groomed, appears stated age Behavior: Appropriately engaged Psychomotor: No psychomotor agitation Cognition Level of Consciousness: Awake and alert. No fluctuation in wakefulness. Orientation: Grossly oriented Memory: Intact Attention/Concentration: Good Fund of Knowledge: Able to demonstrate an awareness of current events. Mood: Sad Affect: Congruent to mood Speech/Language: Appropriate tone, prosody, noé, phonetics, and syntax Thought Form: Goal-directed. No loosening of associations. Thought Content: No delusions noted or endorsed. Perceptual Disturbances: Did not appear to respond to auditory stimuli. (more content not included)... [facility] 05-06-2022 History of Presen t illness Narrative Images from the original note were not included. PSYC FOLLOW UP - PSYCHIATRIC PROGRESS NOTE DIAGNOSIS: Bipolar 2 disorder Generalized Anxiety Disorder GAF: -60-51 Moderate symptoms or moderate difficulty in social, occupational or school functioning. TREATMENT PLAN: Increase Lamictal gradually to address mood related symptoms. Utilize hydroxyzine as needed to manage anxiety symptoms. Utilize melatonin to help with sleep quality. 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 Follow up in 4 weeks. Medication Update: Lamictal 25 mg - take 2 tablets once daily for 14 days, then take 3 tablets once daily after that. 2. Utilize Hydroxyzine at the same dose as needed to address anxiety symptoms. The effects and side effects of all the medications were reviewed in detail with the patient. He is aware of the rash side effect associated with Lamictal. Patient is in agreement with the treatment plan and aware to reach out with any questions, concerns, or worsening of symptoms prior to the next appointment. CC: Follow up regarding mood and anxiety With the patient consent, visit was performed virtually. I have communicated my name and active licensure. The patient's identity and physical location were verified at the time of this visit. Either the patient or their legal customer operations representative has been informed of the risks and benefits of -- and alternatives to -- treatment through a remote evaluation and consents to proceed with the evaluation remotely. HPI: Chas Amanda is a 17 year old Male with a history of Bipolar disorder and ANIVAL presenting today for follow-up. Date of last visit: 03/27/2022 Plan from last visit: Start Lamictal to address his mood related symptoms. Continue hydroxyzine as needed to help with anxiety. Follow up in 6 weeks. Today Chas shares that he is doing okay. He feels that Lamictal is helping with his mood. He has a hard time taking the medication consistently. He has not increased it more than 25 mg yet. He has not missed it more than 2 days in the row. He has noticed that his sadness has improved. It feels a little bit better . Denies any intense suicidal thoughts. He would like to try to go to sleep earlier. He is getting 7 to 8 hours of sleep. He would like to try melatonin and is going to ask his mother to get the medication for him. He has not been able to work. 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 He needs to pass the written portion and practice driving. Feels that parents are too busy. We discussed patient being more proactive regarding this. He has been spending his time playing video games. He goes out to play basketball at the gym with a friend. His friends are usually working 2nd shift and it is hard to get together with them. Has only taken hydroxyzine 4 times since last visit as anxiety has been more manageable. Interval Progress: Slightly improved Risks and benefits of the medication, including any black box warnings, were discussed with the patient. Social History: See HPI PATIENT DATA: Generalized Anxiety Disorder Scale (ANIVAL-7) ANIVAL - 7 SCORES 03/03/2022 03/27/2022 05/06/2022 ANIVAL-7 Score 21 21 21 (0-4) minimal anxiety, (5-9) mild anxiety, (10-14) moderate anxiety, (15-21) severe anxiety Patient Health Questionnaire (PHQ-9) PHQ-9 03/03/2022 03/27/2022 05/06/2022 Score 21 22 22 (0-4) minimal depression, (5-9) mild depression, (10-14) moderate depression, (15-19) moderately severe depression, (20-27) severe depression ROS: See HPI General: Negative for fever, malaise, unintentional weight loss HEENT: Negative for recent changes in vision or hearing, no nasal drainage Respiratory: Negative for cough, wheezing or SOB Cardiovascular: Negative for chest pain GI: Negative for nausea, vomiting, change in bowel habits MUSCULOSKELETAL: Negative for acute back or joint pain SKIN: Negative for rash NEURO: Negative for headaches, seizures, focal neurological deficits All other systems negative. VITAL SIGNS: BP Temp Pulse Resp SpO2 MENTAL STATUS EXAMINATION: Appearance: Appropriately groomed, appears stated age Behavior: Appropriately engaged Psychomotor: No psychomotor agitation Cognition Level of Consciousness: Awake and alert. No fluctuation in wakefulness. Orientation: Grossly oriented Memory: Intact Attention/Concentration: Good Fund of Knowledge: Able to demonstrate an awareness of current events. Mood: Sad Affect: Congruent to mood Speech/Language: Appropriate tone, prosody, noé, phonetics, and syntax Thought Form: Goal-directed. No loosening of associations. Thought Content: No delusions noted or endorsed. Perceptual Disturbances: Did not appear to respond to auditory stimuli. Safety: Suicidal Ideations: No suicidal ideation, intent or plan. Homicidal Ideations: No homicidal ideation, intent or plan. Insight: Appropriate Judgment: Appropriate I spent a total of 28 minutes on the date of the service which included preparing to see the patient, [id number] patient care, completing clinical documentation, and counseling and educating the patient/family/caregiver, ordering medications/labs. Derrick Gastelum APRN.CNP May 06, 2022 4:35 PM This note was partially generated using 365[employer] voice recognition system. Note was reviewed for accuracy. There may be minor misspellings or grammar miscues with [employer] voice recognition. documented in this encounter [facility] 03-27-2022 Note HNO ID: [id number] Author: Derrick Gastelum APRN.CNP Service: ? Author Type: Nurse Practitioner Type: Progress Notes Filed: 03/27/2022 4:02 PM Note Text: PSYC FOLLOW UP - PSYCHIATRIC PROGRESS NOTE DIAGNOSIS: Bipolar 2 disorder Generalized Anxiety Disorder GAF: -60-51 Moderate symptoms or moderate difficulty in social, occupational or school functioning. TREATMENT PLAN: Start Lamictal to address his mood related symptoms. Continue hydroxyzine as needed to help with anxiety. Follow up in 6 weeks. Medication Update: Lamictal (lamotrigine) 25 mg - take 1 tablet once daily for 2 weeks, then take 2 tablets once daily for 2 weeks, then take 3 tablets once daily after that. 2. Continue to utilize Hydroxyzine as needed for anxiety. The effects and side effects of all the medications were reviewed in detail with the patient. He is aware of the rash side effect associated with Lamictal. Patient is in agreement with the treatment plan and aware to reach out with any questions, concerns, or worsening of symptoms prior to the next appointment. CC: Follow up regarding mood and anxiety With the patient consent, visit was performed virtually. HPI: Chas Amanda is a 17 year old Male with a history of Bipolar disorder and ANIVAL presenting today for follow-up. Date of last visit: 03/04/2022 Plan from last visit: Increase Zyprexa to address his mood related symptoms. Continue Hydroxyzine at the same dose and utilize it as needed. Complete fasting monitoring lab work. Follow up in 3 weeks. It is important to note that Chas reached out to this provider as he was concerned about some increase in anxiety regarding taking the Zyprexa. He reported anxiety provoking thoughts about getting diabetes due to this medication. He shared that he was worried due to his family having a history of diabetes. Today he shares that he stopped Zyprexa. He has felt more anxious in the last couple days. Noticed some stomach discomfort due to anxiety. Discussed how he has tend to focus on side effects of multiple medications in the past. Patient was able to accept hyper focusing on side effect as a shortcoming and barrier in his treatment. He has not completed the fasting lab work. Different treatment options were reviewed in detail with the patient. He is able to fall asleep better. He takes hydroxyzine as needed but doesn't need it every night for sleep. He has noticed some negative thoughts but denies thoughts of hurting himself. Denies them being tied with any specific trigger currently. He has still not gotten a job. 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 His parents are helping him figure it out. Interval Progress: Same Risks and benefits of the medication, including any black box warnings, were discussed with the patient. Social History: See HPI PATIENT DATA: Generalized Anxiety Disorder Scale (ANIVAL-7) ANIVAL - 7 SCORES 02/03/2022 03/03/2022 03/27/2022 ANIVAL-7 Score 21 21 21 (0-4) minimal anxiety, (5-9) mild anxiety, (10-14) moderate anxiety, (15-21) severe anxiety Patient Health Questionnaire (PHQ-9) PHQ-9 02/03/2022 03/03/2022 03/27/2022 Score 21 21 22 (0-4) minimal depression, (5-9) mild depression, (10-14) moderate depression, (15-19) moderately severe depression, (20-27) severe depression ROS: General: Negative for fever, malaise, unintentional weight loss HEENT: Negative for recent changes in vision or hearing, no nasal drainage Respiratory: Negative for cough, wheezing or SOB Cardiovascular: Negative for chest pain GI: Negative for nausea, vomiting, change in bowel habits MUSCULOSKELETAL: Negative for acute back or joint pain SKIN: Negative for rash NEURO: Negative for headaches, seizures, focal neurological deficits All other systems negative. VITAL SIGNS: BP Temp Pulse Resp SpO2 MENTAL STATUS EXAMINATION: Appearance: Appropriately groomed, appears stated age Behavior: Appropriately engaged Psychomotor: No psychomotor agitation Cognition Level of Consciousness: Awake and alert. No fluctuation in wakefulness. Orientation: Grossly oriented Memory: Intact Attention/Concentration: Good Fund of Knowledge: Able to demonstrate an awareness of current events. Mood: Sad, Anxious Affect: Congruent to mood Speech/Language: Appropriate tone, prosody, noé, phonetics, and syntax Thought Form: Goal-directed. No loosening of associations. Thought Content: No delusions noted or endorsed. Perceptual Disturbances: Did not appear to respond to auditory stimuli. Safety: Suicidal Ideations: No suicidal ideation, intent or plan. Homicidal Ideations: No homicidal ideation, intent or plan. Insight: Appropriate Judgment: Appropriate I spent a total of 28 minutes on the date of the service which included preparing to see the patient, [id number] patient care, completing clinical documentation, and counseling and educating the patient/family/caregiver, (more content not included)... [facility] 03-27-2022 Instructions Derrick Gastelum APRN.CNP - 03/27/2022 3:57 PM EST Benjamin Doherty, It was good to talk with you today. Below is a summary of the plan that we discussed during your appointment for reference. Of course, if you have any questions or concerns do not hesitate to reach out to me via a message or call. Derrick Rock APRN.[facility] PLAN AND FOLLOW UP: YOU SHOULD SEEK IMMEDIATE MEDICAL ATTENTION AT THE NEAREST EMERGENCY DEPARTMENT OR BY CALLING 911, IF ANY OF THE FOLLOWING OCCURS: - New or worsening thoughts of harming yourself (suicidal thoughts) or others (homicidal thoughts) - Not feeling safe at home or worrying about your ability to remain safe at home If you are having thoughts of harming yourself or others, then you can: - Call the National Suicide Hotline at 0-842-CXGFSHM ( ) or 1-656-518-FTFI (1463) - Text 0QYFY to 557058 Medication Update: Lamictal (lamotrigine) 25 mg - take 1 tablet once daily for 2 weeks, then take 2 tablets once daily for 2 weeks, then take 3 tablets once daily after that. 2. Continue to utilize Hydroxyzine as needed for anxiety. Next appointment: --Schedule in 6 weeks or sooner if needed -- You may call the department appointment line at [phone] to schedule your appointment. -- Please call my nurse Renee at [phone] or send me a message in Knowable with any questions or concerns between appointments. documented in this encounter [facility] 03-27-2022 History of Presen t illness Narrative Images from the original note were not included. PSYC FOLLOW UP - PSYCHIATRIC PROGRESS NOTE DIAGNOSIS: Bipolar 2 disorder Generalized Anxiety Disorder GAF: -60-51 Moderate symptoms or moderate difficulty in social, occupational or school functioning. TREATMENT PLAN: Start Lamictal to address his mood related symptoms. Continue hydroxyzine as needed to help with anxiety. Follow up in 6 weeks. Medication Update: Lamictal (lamotrigine) 25 mg - take 1 tablet once daily for 2 weeks, then take 2 tablets once daily for 2 weeks, then take 3 tablets once daily after that. 2. Continue to utilize Hydroxyzine as needed for anxiety. The effects and side effects of all the medications were reviewed in detail with the patient. He is aware of the rash side effect associated with Lamictal. Patient is in agreement with the treatment plan and aware to reach out with any questions, concerns, or worsening of symptoms prior to the next appointment. CC: Follow up regarding mood and anxiety With the patient consent, visit was performed virtually. HPI: Chas Amanda is a 17 year old Male with a history of Bipolar disorder and ANIVAL presenting today for follow-up. Date of last visit: 03/04/2022 Plan from last visit: Increase Zyprexa to address his mood related symptoms. Continue Hydroxyzine at the same dose and utilize it as needed. Complete fasting monitoring lab work. Follow up in 3 weeks. It is important to note that Chas reached out to this provider as he was concerned about some increase in anxiety regarding taking the Zyprexa. He reported anxiety provoking thoughts about getting diabetes due to this medication. He shared that he was worried due to his family having a history of diabetes. Today he shares that he stopped Zyprexa. He has felt more anxious in the last couple days. Noticed some stomach discomfort due to anxiety. Discussed how he has tend to focus on side effects of multiple medications in the past. Patient was able to accept hyper focusing on side effect as a shortcoming and barrier in his treatment. He has not completed the fasting lab work. Different treatment options were reviewed in detail with the patient. He is able to fall asleep better. He takes hydroxyzine as needed but doesn't need it every night for sleep. He has noticed some negative thoughts but denies thoughts of hurting himself. Denies them being tied with any specific trigger currently. He has still not gotten a job. 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 His parents are helping him figure it out. Interval Progress: Same Risks and benefits of the medication, including any black box warnings, were discussed with the patient. Social History: See HPI PATIENT DATA: Generalized Anxiety Disorder Scale (ANIVAL-7) ANIVAL - 7 SCORES 02/03/2022 03/03/2022 03/27/2022 ANIVAL-7 Score 21 21 21 (0-4) minimal anxiety, (5-9) mild anxiety, (10-14) moderate anxiety, (15-21) severe anxiety Patient Health Questionnaire (PHQ-9) PHQ-9 02/03/2022 03/03/2022 03/27/2022 Score 21 21 22 (0-4) minimal depression, (5-9) mild depression, (10-14) moderate depression, (15-19) moderately severe depression, (20-27) severe depression ROS: General: Negative for fever, malaise, unintentional weight loss HEENT: Negative for recent changes in vision or hearing, no nasal drainage Respiratory: Negative for cough, wheezing or SOB Cardiovascular: Negative for chest pain GI: Negative for nausea, vomiting, change in bowel habits MUSCULOSKELETAL: Negative for acute back or joint pain SKIN: Negative for rash NEURO: Negative for headaches, seizures, focal neurological deficits All other systems negative. VITAL SIGNS: BP Temp Pulse Resp SpO2 MENTAL STATUS EXAMINATION: Appearance: Appropriately groomed, appears stated age Behavior: Appropriately engaged Psychomotor: No psychomotor agitation Cognition Level of Consciousness: Awake and alert. No fluctuation in wakefulness. Orientation: Grossly oriented Memory: Intact Attention/Concentration: Good Fund of Knowledge: Able to demonstrate an awareness of current events. Mood: Sad, Anxious Affect: Congruent to mood Speech/Language: Appropriate tone, prosody, noé, phonetics, and syntax Thought Form: Goal-directed. No loosening of associations. Thought Content: No delusions noted or endorsed. Perceptual Disturbances: Did not appear to respond to auditory stimuli. Safety: Suicidal Ideations: No suicidal ideation, intent or plan. Homicidal Ideations: No homicidal ideation, intent or plan. Insight: Appropriate Judgment: Appropriate I spent a total of 28 minutes on the date of the service which included preparing to see the patient, [id number] patient care, completing clinical documentation, and counseling and educating the patient/family/caregiver, ordering medications/labs. Derrick Gastelum APRN.CNP March 27, 2022 3:26 PM This note was partially generated using 365webcall voice recognition system. Note was reviewed for accuracy. There may be minor misspellings or grammar miscues with 365webcall voice recognition. documented in this encounter [facility] 03-04-2022 Note HNO ID: [id number] Author: Derrick Gastelum APRN.CNP Service: ? Author Type: Nurse Practitioner Type: Progress Notes Filed: 03/10/2022 2:39 PM Note Text: PSYC FOLLOW UP - PSYCHIATRIC PROGRESS NOTE DIAGNOSIS: Bipolar 2 disorder Generalized Anxiety Disorder GAF: -60-51 Moderate symptoms or moderate difficulty in social, occupational or school functioning. TREATMENT PLAN: Increase Zyprexa to address his mood related symptoms. Continue Hydroxyzine at the same dose and utilize it as needed. Complete fasting monitoring lab work. Follow up in 3 weeks. Medication Update: Zyprexa 5 mg - take 1 tablet at bedtime. Take Hydroxyzine at the same dose. The effects and side effects of all the medications were reviewed in detail with the patient. He denies any involuntary movement related side effects. Patient is in agreement with the treatment plan and aware to reach out with any questions, concerns, or worsening of symptoms prior to the next appointment. CC: Follow up regarding mood and anxiety With the patient consent, visit was performed virtually. HPI: Chas Amanda is a 17 year old Male with a history of Bipolar 2 disorder and ANIVAL presenting today for follow-up. Date of last visit: 02/04/2022 Plan from last visit: Increase hydroxyzine to help with his anxiety symptoms. Start Zyprexa to help with persistent depressive symptoms and impulsivity at times. Encouraged individual psychotherapy but patient does not feel that he is ready for therapy yet. Follow up in 4 weeks. Today Chas shares that Zyprexa is helping him sleep better. He has noticed that he has struggled with more irritability at night. He notices that little things get to him. He denies any side effects from the Zyprexa. He denies any changes in his appetite. He is only eating 1 meal a day. His suicidal thoughts have improved since starting Zyprexa. He still has stress related to feeling phased out from a friendship. He has been coping by hanging out with other friends. He is thinking about applying to [employer] for a job. He denies any stress in any relationships at home. He has noticed improvement in his anxiety symptoms with the increase in hydroxyzine dose. He denies any side effects from this medication. He reports struggling with mood fluctuations. Spends more time in depression. Denies any self-harm thoughts or behaviors. He shares that his sleep cycle is getting more normalized. Interval Progress: Slightly improved Risks and benefits of the medication, including any black box warnings, were discussed with the patient. Social History: see HPI PATIENT DATA: Generalized Anxiety Disorder Scale (ANIVAL-7) ANIVAL - 7 SCORES 06/04/2021 02/03/2022 03/03/2022 ANIVAL-7 Score 21 21 21 (0-4) minimal anxiety, (5-9) mild anxiety, (10-14) moderate anxiety, (15-21) severe anxiety Patient Health Questionnaire (PHQ-9) PHQ-9 06/04/2021 02/03/2022 03/03/2022 Score 21 21 21 (0-4) minimal depression, (5-9) mild depression, (10-14) moderate depression, (15-19) moderately severe depression, (20-27) severe depression ROS: General: Negative for fever, malaise, unintentional weight loss HEENT: Negative for recent changes in vision or hearing, no nasal drainage Respiratory: Negative for cough, wheezing or SOB Cardiovascular: Negative for chest pain GI: Negative for nausea, vomiting, change in bowel habits MUSCULOSKELETAL: Negative for acute back or joint pain SKIN: Negative for rash NEURO: Negative for headaches, seizures, focal neurological deficits All other systems negative. VITAL SIGNS: BP Temp Pulse Resp SpO2 MENTAL STATUS EXAMINATION: Appearance: Appropriately groomed, appears stated age Behavior: Appropriately engaged Psychomotor: No psychomotor agitation Cognition Level of Consciousness: Awake and alert. No fluctuation in wakefulness. Orientation: Grossly oriented Memory: Intact Attention/Concentration: Good Fund of Knowledge: Able to demonstrate an awareness of current events. Mood: Euthymic Affect: Congruent to mood Speech/Language: Appropriate tone, prosody, noé, phonetics, and syntax Thought Form: Goal-directed. No loosening of associations. Thought Content: No delusions noted or endorsed. Perceptual Disturbances: Did not appear to respond to auditory stimuli. Safety: Suicidal Ideations: No suicidal ideation, intent or plan. Homicidal Ideations: No homicidal ideation, intent or plan. Insight: Appropriate Judgment: Appropriate I spent a total of 28 minutes on the date of the service which included preparing to see the patient, [id number] patient care, completing clinical documentation, and counseling and educating the patient/family/caregiver, ordering medications/labs. Derrick Gastelum APRN.CNP March 04, 2022 2:39 PM This note was partially generated using 365webcall voice recognition system. Note was reviewed for accuracy. There may be (more content not included)... [facility] 03-04-2022 Instructions Derrick Gastelum APRN.CNP - 03/04/2022 3:06 PM EST Benjamin Doherty, It was good to talk with you today. Below is a summary of the plan that we discussed during your appointment for reference. Of course, if you have any questions or concerns do not hesitate to reach out to me via a message or call. Derrick Rock APRN.CNP PLAN AND FOLLOW UP: YOU SHOULD SEEK IMMEDIATE MEDICAL ATTENTION AT THE NEAREST EMERGENCY DEPARTMENT OR BY CALLING 911, IF ANY OF THE FOLLOWING OCCURS: - New or worsening thoughts of harming yourself (suicidal thoughts) or others (homicidal thoughts) - Not feeling safe at home or worrying about your ability to remain safe at home If you are having thoughts of harming yourself or others, then you can: - Call the National Suicide Hotline at 0-884-ZVFLNLN ( ) or 3-620-314-TALK (8278) - Text 4HOPE to 352215 Medication Update: Zyprexa 5 mg - take 1 tablet at bedtime. Take Hydroxyzine at the same dose. Complete fasting lab work prior to the next appointment. Next appointment: March 27 at 3:30 pm Virtual -- Please call my nurse Renee at [phone] or send me a message in Knowable with any questions or concerns between appointments. documented in this encounter [facility] 03-04-2022 History of Presen t illness Narrative Images from the original note were not included. PSYC FOLLOW UP - PSYCHIATRIC PROGRESS NOTE DIAGNOSIS: Bipolar 2 disorder Generalized Anxiety Disorder GAF: -60-51 Moderate symptoms or moderate difficulty in social, occupational or school functioning. TREATMENT PLAN: Increase Zyprexa to address his mood related symptoms. Continue Hydroxyzine at the same dose and utilize it as needed. Complete fasting monitoring lab work. Follow up in 3 weeks. Medication Update: Zyprexa 5 mg - take 1 tablet at bedtime. Take Hydroxyzine at the same dose. The effects and side effects of all the medications were reviewed in detail with the patient. He denies any involuntary movement related side effects. Patient is in agreement with the treatment plan and aware to reach out with any questions, concerns, or worsening of symptoms prior to the next appointment. CC: Follow up regarding mood and anxiety With the patient consent, visit was performed virtually. HPI: Chas Amanda is a 17 year old Male with a history of Bipolar 2 disorder and ANIVAL presenting today for follow-up. Date of last visit: 02/04/2022 Plan from last visit: Increase hydroxyzine to help with his anxiety symptoms. Start Zyprexa to help with persistent depressive symptoms and impulsivity at times. Encouraged individual psychotherapy but patient does not feel that he is ready for therapy yet. Follow up in 4 weeks. Today Chas shares that Zyprexa is helping him sleep better. He has noticed that he has struggled with more irritability at night. He notices that little things get to him. He denies any side effects from the Zyprexa. He denies any changes in his appetite. He is only eating 1 meal a day. His suicidal thoughts have improved since starting Zyprexa. He still has stress related to feeling phased out from a friendship. He has been coping by hanging out with other friends. He is thinking about applying to [employer] for a job. He denies any stress in any relationships at home. He has noticed improvement in his anxiety symptoms with the increase in hydroxyzine dose. He denies any side effects from this medication. He reports struggling with mood fluctuations. Spends more time in depression. Denies any self-harm thoughts or behaviors. He shares that his sleep cycle is getting more normalized. Interval Progress: Slightly improved Risks and benefits of the medication, including any black box warnings, were discussed with the patient. Social History: see HPI PATIENT DATA: Generalized Anxiety Disorder Scale (ANIVAL-7) ANIVAL - 7 SCORES 06/04/2021 02/03/2022 03/03/2022 ANIVAL-7 Score 21 21 21 (0-4) minimal anxiety, (5-9) mild anxiety, (10-14) moderate anxiety, (15-21) severe anxiety Patient Health Questionnaire (PHQ-9) PHQ-9 06/04/2021 02/03/2022 03/03/2022 Score 21 21 21 (0-4) minimal depression, (5-9) mild depression, (10-14) moderate depression, (15-19) moderately severe depression, (20-27) severe depression ROS: General: Negative for fever, malaise, unintentional weight loss HEENT: Negative for recent changes in vision or hearing, no nasal drainage Respiratory: Negative for cough, wheezing or SOB Cardiovascular: Negative for chest pain GI: Negative for nausea, vomiting, change in bowel habits MUSCULOSKELETAL: Negative for acute back or joint pain SKIN: Negative for rash NEURO: Negative for headaches, seizures, focal neurological deficits All other systems negative. VITAL SIGNS: BP Temp Pulse Resp SpO2 MENTAL STATUS EXAMINATION: Appearance: Appropriately groomed, appears stated age Behavior: Appropriately engaged Psychomotor: No psychomotor agitation Cognition Level of Consciousness: Awake and alert. No fluctuation in wakefulness. Orientation: Grossly oriented Memory: Intact Attention/Concentration: Good Fund of Knowledge: Able to demonstrate an awareness of current events. Mood: Euthymic Affect: Congruent to mood Speech/Language: Appropriate tone, prosody, noé, phonetics, and syntax Thought Form: Goal-directed. No loosening of associations. Thought Content: No delusions noted or endorsed. Perceptual Disturbances: Did not appear to respond to auditory stimuli. Safety: Suicidal Ideations: No suicidal ideation, intent or plan. Homicidal Ideations: No homicidal ideation, intent or plan. Insight: Appropriate Judgment: Appropriate I spent a total of 28 minutes on the date of the service which included preparing to see the patient, [id number] patient care, completing clinical documentation, and counseling and educating the patient/family/caregiver, ordering medications/labs. Derrick Gastelum APRN.CNP March 04, 2022 2:39 PM This note was partially generated using 365webcall voice recognition system. Note was reviewed for accuracy. There may be minor misspellings or grammar miscues with 365webcall voice recognition. documented in this encounter [facility] 02-04-2022 Note HNO ID: [id number] Author: Derrick Gastelum APRN.CNP Service: ? Author Type: Nurse Practitioner Type: Progress Notes Filed: 02/11/2022 8:01 PM Note Text: PSYC FOLLOW UP - PSYCHIATRIC PROGRESS NOTE DIAGNOSIS: Bipolar 2 disorder Generalized Anxiety Disorder GAF: -60-51 Moderate symptoms or moderate difficulty in social, occupational or school functioning. TREATMENT PLAN: Increase hydroxyzine to help with his anxiety symptoms. Start Zyprexa to help with persistent depressive symptoms and impulsivity at times. Encouraged individual psychotherapy but patient does not feel that he is ready for therapy yet. Follow up in 4 weeks. Medication Update: Zyprexa (Olanzapine) 2.5 mg - take 1 tablet at bedtime once daily for 14 days, then take 2 tablets at bedtime after that. Hydroxyzine 50 mg - take 1 tablet up to three times daily to help with anxiety/panic symptoms. The effects and side effects of all the medications were reviewed in detail with the patient. He is in agreement with the treatment plan and aware to reach out with any questions, concerns, or worsening of symptoms prior to the next appointment. CC: Follow up regarding mood and anxiety With the patient consent, visit was performed virtually. HPI: Chas Amanda is a 17 year old Male with a history of Bipolar Disorder and ANIVAL presenting today for follow-up. Date of last visit: 06/04/2021 Plan from last visit: Consistently take Nortriptyline every day. Encouraged to set an alarm to remember to take his medications. Continue Lexapro and Seroquel at the same dose. Utilize hydroxyzine as needed for increased feelings of anxiety. Utilize 20 minutes of productivity technique to help improve his focus and productivity related to school work. Work on regulating his sleep cycle. Follow up in 3 to 4 weeks or sooner if needed. Today Chas shares that he is alright. He got kicked out of school but finished the [employer] program. Since we last talked, he was able to socialize with new friends and things started to get better. He stopped Pamelor, Lexapro, and Seroquel. He only used his hydroxyzine. He did like the Pamelor and felt that it was helping with his anxiety. He denies any side effects from the Pamelor. He has been struggling to fall asleep at night due to negative racing thoughts and anxiety. In November, he started to experience panic attacks again due to a stress in a friendship. Feels that he is being phased out of the friendship trio. He has panic attacks about that every single day. He does not have a job currently. He does plan on getting a job at [employer]. He has been playing video games, watching basket ball, and playing basketball when the weather is better. Feels that his depression is still present. Has had passive suicidal thoughts over the past few months. 2 weeks ago, he had thoughts of cutting. He last engaged in cutting behavior 1 year ago. He knows that his parents will listen if he is struggling. He is hoping to find new friends when he finds a new job. He is not eating a lot since the past 2 months. He enquired about Bipolar disorder. Upon further exploration, it appears that patient does meet criteria for Bipolar 2 disorder. He does not know anyone in the family who have a Bipolar disorder history. Interval Progress: Slightly worse Risks and benefits of the medication, including any black box warnings, were discussed with the patient. Social History: See HPI PATIENT DATA: Generalized Anxiety Disorder Scale (ANIVAL-7) ANIVAL - 7 SCORES 05/22/2021 06/04/2021 02/03/2022 ANIVAL-7 Score 18 21 21 (0-4) minimal anxiety, (5-9) mild anxiety, (10-14) moderate anxiety, (15-21) severe anxiety Patient Health Questionnaire (PHQ-9) PHQ-9 05/22/2021 06/04/2021 02/03/2022 Score 24 21 21 (0-4) minimal depression, (5-9) mild depression, (10-14) moderate depression, (15-19) moderately severe depression, (20-27) severe depression ROS: General: Negative for fever, malaise, unintentional weight loss HEENT: Negative for recent changes in vision or hearing, no nasal drainage Respiratory: Negative for cough, wheezing or SOB Cardiovascular: Negative for chest pain GI: Negative for nausea, vomiting, change in bowel habits MUSCULOSKELETAL: Negative for acute back or joint pain SKIN: Negative for rash NEURO: Negative for headaches, seizures, focal neurological deficits All other systems negative. VITAL SIGNS: BP Temp Pulse Resp SpO2 MENTAL STATUS EXAMINATION: Appearance: Appropriately groomed, appears stated age Behavior: Appropriately engaged Psychomotor: No psychomotor agitation Cognition Level of Consciousness: Awake and alert. No fluctuation in wakefulness. Orientation: Grossly oriented Memory: Intact Attention/Concentration: Good Fund of Knowledge: Able to demonstrate an awareness of current events. Mood: Depressed, Anxious Affect: Congruent to mood Speech/Language: Approp (more content not included)... [facility] 02-04-2022 Instructions Derrick Gastelum APRN.CNP - 02/04/2022 2:39 PM EST Benjamin Doherty, It was good to talk with you today. Below is a summary of the plan that we discussed during your appointment for reference. Of course, if you have any questions or concerns do not hesitate to reach out to me via a message or call. Derrick Rock APRN.CNP PLAN AND FOLLOW UP: YOU SHOULD SEEK IMMEDIATE MEDICAL ATTENTION AT THE NEAREST EMERGENCY DEPARTMENT OR BY CALLING 911, IF ANY OF THE FOLLOWING OCCURS: - New or worsening thoughts of harming yourself (suicidal thoughts) or others (homicidal thoughts) - Not feeling safe at home or worrying about your ability to remain safe at home If you are having thoughts of harming yourself or others, then you can: - Call the National Suicide Hotline at 0-590-DTYBSFK ( ) or 2-687-801-TALK (6187) - Text 4HOPE to 090686 Medication Update: Zyprexa (Olanzapine) 2.5 mg - take 1 tablet at bedtime once daily for 14 days, then take 2 tablets at bedtime after that. Hydroxyzine 50 mg - take 1 tablet up to three times daily to help with anxiety/panic symptoms. Next appointment: --Schedule in 4 weeks or sooner if needed -- You may call the department appointment line at [phone] to schedule your appointment. -- Please call my nurse Renee at [phone] or send me a message in Knowable with any questions or concerns between appointments. documented in this encounter [facility] 02-04-2022 History of Presen t illness Narrative Images from the original note were not included. PSYC FOLLOW UP - PSYCHIATRIC PROGRESS NOTE DIAGNOSIS: Bipolar 2 disorder Generalized Anxiety Disorder GAF: -60-51 Moderate symptoms or moderate difficulty in social, occupational or school functioning. TREATMENT PLAN: Increase hydroxyzine to help with his anxiety symptoms. Start Zyprexa to help with persistent depressive symptoms and impulsivity at times. Encouraged individual psychotherapy but patient does not feel that he is ready for therapy yet. Follow up in 4 weeks. Medication Update: Zyprexa (Olanzapine) 2.5 mg - take 1 tablet at bedtime once daily for 14 days, then take 2 tablets at bedtime after that. Hydroxyzine 50 mg - take 1 tablet up to three times daily to help with anxiety/panic symptoms. The effects and side effects of all the medications were reviewed in detail with the patient. He is in agreement with the treatment plan and aware to reach out with any questions, concerns, or worsening of symptoms prior to the next appointment. CC: Follow up regarding mood and anxiety With the patient consent, visit was performed virtually. HPI: Chas Amanda is a 17 year old Male with a history of Bipolar Disorder and ANIVAL presenting today for follow-up. Date of last visit: 06/04/2021 Plan from last visit: Consistently take Nortriptyline every day. Encouraged to set an alarm to remember to take his medications. Continue Lexapro and Seroquel at the same dose. Utilize hydroxyzine as needed for increased feelings of anxiety. Utilize 20 minutes of productivity technique to help improve his focus and productivity related to school work. Work on regulating his sleep cycle. Follow up in 3 to 4 weeks or sooner if needed. Today Chas shares that he is alright. He got kicked out of school but finished the [employer] program. Since we last talked, he was able to socialize with new friends and things started to get better. He stopped Pamelor, Lexapro, and Seroquel. He only used his hydroxyzine. He did like the Pamelor and felt that it was helping with his anxiety. He denies any side effects from the Pamelor. He has been struggling to fall asleep at night due to negative racing thoughts and anxiety. In November, he started to experience panic attacks again due to a stress in a friendship. Feels that he is being phased out of the friendship trio. He has panic attacks about that every single day. He does not have a job currently. He does plan on getting a job at [employer]. He has been playing video games, watching basket ball, and playing basketball when the weather is better. Feels that his depression is still present. Has had passive suicidal thoughts over the past few months. 2 weeks ago, he had thoughts of cutting. He last engaged in cutting behavior 1 year ago. He knows that his parents will listen if he is struggling. He is hoping to find new friends when he finds a new job. He is not eating a lot since the past 2 months. He enquired about Bipolar disorder. Upon further exploration, it appears that patient does meet criteria for Bipolar 2 disorder. He does not know anyone in the family who have a Bipolar disorder history. Interval Progress: Slightly worse Risks and benefits of the medication, including any black box warnings, were discussed with the patient. Social History: See HPI PATIENT DATA: Generalized Anxiety Disorder Scale (ANIVAL-7) ANIVAL - 7 SCORES 05/22/2021 06/04/2021 02/03/2022 ANIVAL-7 Score 18 21 21 (0-4) minimal anxiety, (5-9) mild anxiety, (10-14) moderate anxiety, (15-21) severe anxiety Patient Health Questionnaire (PHQ-9) PHQ-9 05/22/2021 06/04/2021 02/03/2022 Score 24 21 21 (0-4) minimal depression, (5-9) mild depression, (10-14) moderate depression, (15-19) moderately severe depression, (20-27) severe depression ROS: General: Negative for fever, malaise, unintentional weight loss HEENT: Negative for recent changes in vision or hearing, no nasal drainage Respiratory: Negative for cough, wheezing or SOB Cardiovascular: Negative for chest pain GI: Negative for nausea, vomiting, change in bowel habits MUSCULOSKELETAL: Negative for acute back or joint pain SKIN: Negative for rash NEURO: Negative for headaches, seizures, focal neurological deficits All other systems negative. VITAL SIGNS: BP Temp Pulse Resp SpO2 MENTAL STATUS EXAMINATION: Appearance: Appropriately groomed, appears stated age Behavior: Appropriately engaged Psychomotor: No psychomotor agitation Cognition Level of Consciousness: Awake and alert. No fluctuation in wakefulness. Orientation: Grossly oriented Memory: Intact Attention/Concentration: Good Fund of Knowledge: Able to demonstrate an awareness of current events. Mood: Depressed, Anxious Affect: Congruent to mood Speech/Language: Appropriate tone, prosody, noé, phonetics, and syntax Thought Form: Goal-directed. No loosening of associations. Thought Content: No delusions noted or endorsed. Perceptual Disturbances: Did not appear to respond to auditory stimuli. Safety: Suicidal Ideations: No suicidal ideation, intent or plan. Homicidal Ideations: No homicidal ideation, intent or plan. Insight: Appropriate Judgment: Appropriate I spent a total of 38 minutes on the date of the service which included preparing to see the patient, [id number] patient care, completing clinical documentation, and counseling and educating the patient/family/caregiver, ordering medications/labs. Derrick Gastelum APRN.[facility] February 04, 2022 2:07 PM This note was partially generated using [employer] voice recognition system. Note was reviewed for accuracy. There may be minor misspellings or grammar miscues with [employer] voice recognition. documented in this encounter [facility] 08-21-2021 Miscellaneous Notes Patient given results and verbalized understanding of instructions given. Isabelle Eldridge Please notify that xray showed fracture if the small bone at end of thumb. Recommendation is to wear splint and return to activity as tolerated. F/u with pcp or ortho in 10 days if s/s persist/worsen/change. documented in this encounter [facility] 07-03-2021 History of Presen t illness Narrative Patient did not log in for his virtual appointment today. He did not answer his phone before and during the appointment time. documented in this encounter [facility] 06-04-2021 History of Presen t illness Narrative Images from the original note were not included. PSYC FOLLOW UP - PSYCHIATRIC PROGRESS NOTE DIAGNOSIS: 1. MDD, recurrent, severe without psychotic features 2. ANIVAL GAF: -60-51 Moderate symptoms or moderate difficulty in social, occupational or school functioning. TREATMENT PLAN: 1. Consistently take Nortriptyline every day. Encouraged to set an alarm to remember to take his medications. 2. Continue Lexapro and Seroquel at the same dose. 3. Utilize hydroxyzine as needed for increased feelings of anxiety. 4. Utilize 20 minutes of productivity technique to help improve his focus and productivity related to school work. 5. Work on regulating his sleep cycle. 6. Follow up in 3 to 4 weeks or sooner if needed. The effects and side effects of all the medications were reviewed in detail with the patient. He denies any involuntary movement related side effects. He is in agreement with the treatment plan. Patient is aware to reach out with any questions, concerns, or worsening of symptoms prior to the next appointment. CC: Depression and Anxiety With the patient consent, visit was performed virtually. HPI: Chas Amanda is a 16 year old Male with a history of MDD and ANIVAL presenting today for follow-up. Date of last visit: 05/22/2021 Plan from last visit: 1. Increase Nortriptyline gradually to address his severe depressive symptoms. 2. Decrease Lexapro due to lack of efficacy. 3. Continue Seroquel and Atarax at the same dose. 4. Follow up with the provider in 2 weeks. 5. Work on regulating his sleep cycle. Today Cahs shares that he has a lot of stress currently related to his school work and his parents. My parents have been trying to say that they will kick me out of the house if I don't pass this year . Feels that parents think that this will motivate him more to get his school work completed. Does not think that it is helping. He finds himself dwelling on this frequently. Shares that he is still behind in school work. Reports struggling to take his medications consistently especially his Nortriptyline. Unsure why but feels that he forgets and goes to sleep and remembers in the morning. Shares that his sleep is still dysregulated. He has few days when his sleep is more diurnal than others. Feels that suicidal thoughts became more consistent in the last 2 weeks. Denies any plans or intentions. Does not recall a particular trigger for his suicidal thoughts. He has been encouraged to set a recurring alarm on his phone to remember taking his medications. He has a hard time getting his school work done. Feels overwhelmed and gets easily distracted. This year it has been harder for him get school work completed compared to other years. Unsure of what really helped him complete his school work last year. Feels that he is not able to move past what his parents are saying to him. His parents feel that mental health treatment is not helping him. He does not wish to engage in psychotherapy as that has not been helpful for him in the past. We discussed utilizing the 20 minute productive technique to help him with his school work. We discussed focusing on things that are in his control versus not in his control to change. Patient was engaged in the discussion and verbalized understanding. Interval Progress: Same Risks and benefits of the medication, including any black box warnings, were discussed with the patient. Social History: See HPI PATIENT DATA: Generalized Anxiety Disorder Scale (ANIVAL-7) ANIVAL - 7 SCORES 05/08/2021 05/22/2021 06/04/2021 ANIVAL-7 Score 20 18 21 (0-4) minimal anxiety, (5-9) mild anxiety, (10-14) moderate anxiety, (15-21) severe anxiety Patient Health Questionnaire (PHQ-9) PHQ-9 05/08/2021 05/22/2021 06/04/2021 Score 22 24 21 (0-4) minimal depression, (5-9) mild depression, (10-14) moderate depression, (15-19) moderately severe depression, (20-27) severe depression ROS: General: Negative for fever, malaise, unintentional weight loss HEENT: Negative for recent changes in vision or hearing, no nasal drainage Respiratory: Negative for cough, wheezing or SOB Cardiovascular: Negative for chest pain GI: Negative for nausea, vomiting, change in bowel habits MUSCULOSKELETAL: Negative for acute back or joint pain SKIN: Negative for rash NEURO: Negative for headaches, seizures, focal neurological deficits All other systems negative. VITAL SIGNS: None due to virtual visit. BP Temp Pulse Resp SpO2 MENTAL STATUS EXAMINATION: Appearance: Appears disheveled, casually dressed, appears stated age Behavior: Appropriately engaged Psychomotor: No psychomotor agitation Cognition Level of Consciousness: Awake and alert. No fluctuation in wakefulness. Orientation: Grossly oriented Memory: Intact Attention/Concentration: Good Fund of Knowledge: Able to demonstrate an awareness of current events. Mood: Depressed, Sad Affect: Blunted Speech/Language: Appropriate tone, prosody, noé, phonetics, and syntax Thought Form: Goal-directed. No loosening of associations. Thought Content: No delusions noted or endorsed. Perceptual Disturbances: Did not appear to respond to auditory stimuli. Safety: Suicidal Ideations: Thoughts of suicide, no intent or plan. Homicidal Ideations: No homicidal ideation, intent or plan. Insight: Appropriate Judgment: Appropriate I spent a total of 28 minutes on the date of the service which included preparing to see the patient, [id number] patient care, completing clinical documentation, and counseling and educating the patient/family/caregiver, ordering medications/labs. Derrick Gastelum APRN.[facility] June 04, 2021 2:01 PM documented in this encounter [facility] 05-22-2021 Instructions Derrick Gastelum APRN.CNP - 05/22/2021 11:38 PM EDT Benjamin Doherty, It was good to talk with you today. Below is a summary of the plan that we discussed during your appointment for reference. Of course, if you have any questions or concerns do not hesitate to reach out to me via a message or call. Best, Derrick Gastelum APRN.CNP PLAN AND FOLLOW UP: YOU SHOULD SEEK IMMEDIATE MEDICAL ATTENTION AT THE NEAREST EMERGENCY DEPARTMENT OR BY CALLING 911, IF ANY OF THE FOLLOWING OCCURS: - New or worsening thoughts of harming yourself (suicidal thoughts) or others (homicidal thoughts) - Not feeling safe at home or worrying about your ability to remain safe at home If you are having thoughts of harming yourself or others, then you can: - Call the National Suicide Hotline at 1-292-USPQAMU ( ) or 8-925-081-TALK (1079) - Text 4HOPE to 730589 Medication Update: 1. Nortriptyline 10 mg - take 3 capsules once daily at bedtime for 3 days, then start Nortriptyline 50 mg - take 1 capsule at bedtime. 2. Lexapro 20 mg - take 1/2 tablet once daily. 3. Seroquel 25 mg - take 1 tablet daily at bedtime. 4. Hydroxyzine 25 mg - take 1 tablet every 6 hours as needed for increased feelings of anxiety. Next appointment: Friday at 2:00 pm Virtually -- You may call the department appointment line at [phone] to schedule your appointment. -- Please call my nurse Renee at [phone] or send me a message in [employer] with any questions or concerns between appointments. documented in this encounter [facility] 05-22-2021 History of Presen t illness Narrative Images from the original note were not included. PSYC FOLLOW UP - PSYCHIATRIC PROGRESS NOTE DIAGNOSIS: 1. Major Depressive Disorder, Recurrent, Severe without any psychotic features. 2. ANIVAL GAF: -60-51 Moderate symptoms or moderate difficulty in social, occupational or school functioning. TREATMENT PLAN: 1. Increase Nortriptyline gradually to address his severe depressive symptoms. 2. Decrease Lexapro due to lack of efficacy. 3. Continue Seroquel and Atarax at the same dose. 4. Follow up with the provider in 2 weeks. 5. Work on regulating his sleep cycle. Medication Update: 1. Nortriptyline 10 mg - take 3 capsules once daily at bedtime for 3 days, then start Nortriptyline 50 mg - take 1 capsule at bedtime. 2. Lexapro 20 mg - take 1/2 tablet once daily. 3. Seroquel 25 mg - take 1 tablet daily at bedtime. 4. Hydroxyzine 25 mg - take 1 tablet every 6 hours as needed for increased feelings of anxiety. The effects and side effects of all the medications were reviewed in detail with the patient. He is in agreement with the treatment plan. He is aware to reach out with any questions, concerns, or worsening of symptoms prior to the next appointment. CC: Depression and Anxiety With the patient consent, visit was performed virtually. HPI: Chas Amanda is a 16 year old Male with a history of MDD and ANIVAL presenting today for follow-up. Date of last visit: 05/08/2021 Plan from last visit: 1. Continue gradually increasing nortriptyline as tolerated. 2. Utilize Seroquel consistently to help regulate his sleep cycle. 3. Continue Lexapro at the same dose. 4. Utilize hydroxyzine as needed for increased feelings of anxiety. 5. Encouraged patient to engage in individual psychotherapy. Today Chas shares that he just woke up 30 minutes prior to the appointment time. Shares that he had managed to make some adjustments to his sleep cycle briefly. Had a test for school and then slept during the day. He struggles to focus on his school work. He continues to struggle with feelings of depression. Has tolerated Nortriptyline without any side effects. He still struggles in completing his school assignments. Shares that his suicidal thoughts got worse one day but now they are present chronically. He denies any specific plan or intention. Unable to identify what triggered his thoughts. Denied a specific plan even on his worse day. He has been able to go out and play basketball almost every day between 30 to 60 minutes. Denies any changes in his appetite. Usually eats one meal a day. Is in agreement to increase his Nortriptyline dose to help with his depression. Interval Progress: Slightly improved Risks and benefits of the medication, including any black box warnings, were discussed with the patient. Social History: See HPI PATIENT DATA: Generalized Anxiety Disorder Scale (ANIVAL-7) ANIVAL - 7 SCORES 05/08/2021 05/08/2021 05/22/2021 ANIVAL-7 Score 20 20 18 (0-4) minimal anxiety, (5-9) mild anxiety, (10-14) moderate anxiety, (15-21) severe anxiety Patient Health Questionnaire (PHQ-9) PHQ-9 05/08/2021 05/08/2021 05/22/2021 Score 22 22 24 (0-4) minimal depression, (5-9) mild depression, (10-14) moderate depression, (15-19) moderately severe depression, (20-27) severe depression ROS: General: Negative for fever, malaise, unintentional weight loss HEENT: Negative for recent changes in vision or hearing, no nasal drainage Respiratory: Negative for cough, wheezing or SOB Cardiovascular: Negative for chest pain GI: Negative for nausea, vomiting, change in bowel habits MUSCULOSKELETAL: Negative for acute back or joint pain SKIN: Negative for rash NEURO: Negative for headaches, seizures, focal neurological deficits All other systems negative. MENTAL STATUS EXAMINATION: Appearance: Appropriately groomed, appears stated age Behavior: Appropriately engaged Psychomotor: No psychomotor agitation Cognition Level of Consciousness: Awake and alert. No fluctuation in wakefulness. Orientation: Grossly oriented Memory: Intact Attention/Concentration: Good Fund of Knowledge: Able to demonstrate an awareness of current events. Mood: Depressed Affect: Congruent to mood Speech/Language: Appropriate tone, prosody, noé, phonetics, and syntax Thought Form: Goal-directed. No loosening of associations. Thought Content: No delusions noted or endorsed. Perceptual Disturbances: Did not appear to respond to auditory stimuli. Safety: Suicidal Ideations: suicidal thoughts, no intent or plan. Homicidal Ideations: No homicidal ideation, intent or plan. Insight: Appropriate Judgment: Appropriate I spent a total of 28 minutes on the date of the service which included preparing to see the patient, [id number] patient care, completing clinical documentation, and counseling and educating the patient/family/caregiver, ordering medications/labs. Derrick Gastelum APRN.[facility] May 22, 2021 4:30 PM documented in this encounter [facility] 05-08-2021 History of Presen t illness Narrative Images from the original note were not included. PSYC FOLLOW UP - PSYCHIATRIC PROGRESS NOTE CC: Depression and Anxiety With the patient consent, visit was performed virtually. HPI: Chas is an 16-year-old male who is following up for psychiatric medication management. Today he shares that he only got 3 hours of sleep. Goes to bed around 9 am for the past 2 days. Tires to do homework at night but he is not able to be productive. He has tried to regulate his sleep cycle but was not successful. He forgot about taking Nortriptyline and just started taking this medication 6 days ago. He was on probation from school. Still is 50 assignments behind. He has a hard time getting motivated to do things. Has struggled with motivation for the past 2 years. Worsening this year. Continues to struggle with suicidal thoughts. His racing thoughts are intermittent. They are related to his breakup and his current depression. Does have thoughts about not wanting to be here. Has a hard time talking to someone about it. Feels that these thoughts pass as he tries to distract himself. Denies any specific plan of hurting himself in any way. Risks and benefits of the medication, including any black box warnings, were discussed with the patient. Interval Progress: Same PATIENT DATA: Generalized Anxiety Disorder Scale (ANIVAL-7) ANIVAL - 7 SCORES 04/20/2021 05/08/2021 05/08/2021 ANIVAL-7 Score 19 20 20 (0-4) minimal anxiety, (5-9) mild anxiety, (10-14) moderate anxiety, (15-21) severe anxiety Patient Health Questionnaire (PHQ-9) PHQ-9 04/20/2021 05/08/2021 05/08/2021 Score 18 22 22 (0-4) minimal depression, (5-9) mild depression, (10-14) moderate depression, (15-19) moderately severe depression, (20-27) severe depression PROMIS Global Health PROMIS Global Health - (T-Scores - the mean of general population = 50. Five points is a clinically meaningful difference.) 04/20/2021 05/08/2021 05/08/2021 Physical T-Score 42.3 42.3 42.3 Mental T-Score 25.1 28.4 28.4 PAST MEDICAL HISTORY Diagnosis Date Allergic rhinitis resolved Routine or ritual circumcision Strabismus correct with patch at age 1 PAST SURGICAL HISTORY Procedure Laterality Date CIRCUMCISION W/CLAMP/OTH DEV W/BLOCK Current Outpatient Medications Medication Sig Dispense Refill escitalopram oxalate (LEXAPRO) 20 mg tablet Take 1 tablet by mouth once daily. 90 tablet 0 nortriptyline (PAMELOR) 10 mg capsule Take 1 capsule by mouth daily at bedtime for 7 days, THEN 2 capsules daily at bedtime. 67 capsule 0 QUEtiapine (SEROQUEL) 25 mg tablet Take 1 tablet by mouth daily at bedtime. 30 tablet 0 hydrOXYzine HCl (ATARAX) 25 mg tablet Take 1 tablet by mouth every 6 hours as needed for anxiety (anxiety). 90 tablet 0 No current facility-administered medications for this visit. ROS: GENERAL: Negative for malaise, significant weight loss and fever. HEENT: No changes in hearing or vision, no nose bleeds or other nasal problems. RESPIRATORY: Negative for cough, wheezing and shortness of breath. CARDIOVASCULAR: Negative for chest pain, leg swelling and palpitations. GI: Negative for abdominal discomfort, blood in stools or black stools. : Negative for dysuria, frequency and incontinence. MUSCULOSKELETAL: Negative for joint pain or swelling, back pain, and muscle pain. SKIN: Negative for lesions, rash, and itching. HEMATOLOGY/LYMPHOLOGY Negative for prolonged bleeding, bruising easily, and swollen nodes. ENDOCRINE: Negative for cold or heat intolerance, polyuria, polydipsia and goiter. NEURO: Negative for headaches, syncope, seizures and paralysis. PFSH: No change VITAL SIGNS: There were no vitals filed for this visit. MENTAL STATUS EXAM: CONSTITUTIONAL: Casually dressed ORIENTATION: Person, Place, Time and Situation MEMORY: Recent intact, Remote intact, Immediate intact CONCENTRATION: Normal MOOD: depressed AFFECT: Blunted and Flat SPEECH : Clear & distinct LANGUAGE : Normal ASSOCIATIONS: Intact THOUGHT PROCESS : Logical, Coherent and Rational PROGRESSION : There was no evidence of disturbance in thought perception or progression. FUND OF KNOWLEDGE : Appropriate and Adequate SUICIDE: None currently HOMICIDE: None DATA REVIEWED: Psychiatric scales and Electronic medical record DIAGNOSIS: 1. PRIMARY: Mood Disorder Major Depressive Disorder, Recurrent, Severe Without Psychotic Symptoms 2. Secondary : Anxiety Disorder Generalized Anxiety Disorder GAF: -60-51 Moderate symptoms or moderate difficulty in social, occupational or school functioning. TREATMENT PLAN: 1. Continue gradually increasing nortriptyline as tolerated. 2. Utilize Seroquel consistently to help regulate his sleep cycle. 3. Continue Lexapro at the same dose. 4. Utilize hydroxyzine as needed for increased feelings of anxiety. 5. Encouraged patient to engage in individual psychotherapy. MEDICATION CHANGES: No change since last appointment. Patient is aware of the effects and side effects of his medications. He denies any side effects currently. Patient is in agreement with the treatment plan. He is aware to reach out with any questions, concerns, or worsening of symptoms prior to the next appointment. Follow Up: 3 weeks I spent a total of 28 minutes on the date of the service which included preparing to see the patient, [id number] patient care, completing clinical documentation, obtaining and/or reviewing separately obtained history, counseling and educating the patient/family/caregiver, ordering medications, tests, or procedures, independently interpreting results (not separately reported) and communicating results to the patient/family/caregiver. ADD ON PSYCHOTHERAPY CODE : No SIGNATURE: Derrick Gastelum APRN.CNP PATIENT NAME: Chas Amanda DATE: May 08, 2021 TIME: 2:23 PM PAGER: documented in this encounter [facility] Diagnosis Major depressive disorder, recurrent severe without psychotic features (HCC)- Primary Major depressive disorder, recurrent episode, severe, without mention of psychotic behavior ANIVAL (generalized anxiety disorder) Generalized anxiety disorder [facility] Diagnosis ANIVAL (generalized anxiety disorder)- Primary Generalized anxiety disorder Major depressive disorder, recurrent severe without psychotic features (HCC) Major depressive disorder, recurrent episode, severe, without mention of psychotic behavior documented in this encounter [facility] note* Diagnosis NO SHOW- Primary documented in this encounter [facility] note* Diagnosis Generalized anxiety disorder- Primary Severe episode of recurrent major depressive disorder, without psychotic features (HCC) documented in this encounter [facility] note* Diagnosis Bipolar 2 disorder (HCC)- Primary Other bipolar disorders ANIVAL (generalized anxiety disorder) Generalized anxiety disorder documented in this encounter [facility] note* Diagnosis Bipolar 2 disorder (HCC)- Primary Other bipolar disorders ANIVAL (generalized anxiety disorder) Generalized anxiety disorder Encounter for long-term (current) use of medications Encounter for long-term (current) use of other medications documented in this encounter [facility] note* Diagnosis Bipolar 2 disorder (HCC)- Primary Other bipolar disorders ANIVAL (generalized anxiety disorder) Generalized anxiety disorder documented in this encounter [facility] note* Diagnosis Bipolar 2 disorder (HCC)- Primary Other bipolar disorders ANIVAL (generalized anxiety disorder) Generalized anxiety disorder documented in this encounter [facility] note* Diagnosis Bipolar 2 disorder (HCC)- Primary Other bipolar disorders ANIVAL (generalized anxiety disorder) Generalized anxiety disorder documented in this encounter [facility] note* Diagnosis Hair loss- Primary Alopecia, unspecified Rash Rash and other nonspecific skin eruption documented in this encounter [facility] note* Diagnosis Vitamin D deficiency- Primary Unspecified vitamin D deficiency documented in this encounter [facility] note* Diagnosis Vitamin D deficiency Unspecified vitamin D deficiency documented in this encounter [facility] note* Diagnosis ANIVAL (generalized anxiety disorder)- Primary Generalized anxiety disorder Bipolar 2 disorder (HCC) Other bipolar disorders Sleep difficulties Sleep disturbance, unspecified Wellness examination documented in this encounter [facility] Summary Purpose Family History No Family History Records FoundNo Family History Records FoundNo Family History Records Found Advance Directives No Advanced Directives Records FoundNo Advanced Directives Records FoundNo Advanced Directives Records Found Hospital Course Note HNO ID: [id number] Author: Fabio Espino Service: Pediatric Psychiatry Author Type: Physician Type: Discharge Summary Filed: 04/30/2020 11:08 AM Note Text: CHILD AND ADOLESCENT PSYCHIATRY DISCHARGE SUMMARY PATIENT NAME: Chas Amanda ADMISSION INFORMATION Date of Admission: 04/25/2020 Date of Discharge: 04/30/20 Attending Physician(s): Marisela Castillo MD Formulation from admission: Chas Amanda is 15 year old in the 11th grade in regular age appropriate classes with a history of depression and anxiety followed by Dr. Malik with 0 previous psychiatric admissions admitted to Inpatient Psychiatry for SI. Family history is significant for depression and anxiety. The developmental history is notable for divorce of parents at age 1 and step father is alcoholic. Previous medications trials were limited to: Prozac 40 mg - concern for activatino ? Chas lives with father in [place], [place], but talks to mother on regular basis. In terms of stressors, patient's family identifies social (more content not included)... Additional Source Comments (unrecognized sect ion and content) No Status Records FoundNo Status Records FoundNo Status Records Found INFORMATION SOURCE (unrecogn ized section and content) DATE CREATED AUTHOR AUTHOR'S ORGANIZ ATION 04/30/2020 [facility] DATE CREATED AUTHOR AUTHOR'S ORGANIZ ATION 01/06/2023 [facility] Source Comments (unrecognize d section and content) In the event this informatio n is protected by the Federal Confidentiality of Alcohol and Drug Abuse Patient Records regulations: The Federal rules restrict any use of the information to criminally investigate or prosecute any alcohol or drug abuse patient.[facility] the event this information is protected by the Federal Confidentiality of Alcohol and Drug Abuse Patient Records regulations: The Federal rules restrict any use of the information to criminally investigate or prosecute any alcohol or drug abuse patient.[facility] the event this information is protected by the Federal Confidentiality of Alcohol and Drug Abuse Patient Records regulations: The Federal rules restrict any use of the information to criminally investigate or prosecute any alcohol or drug abuse patient.[facility] the event this information is protected by the Federal Confidentiality of Alcohol and Drug Abuse Patient Records regulations: The Federal rules restrict any use of the information to criminally investigate or prosecute any alcohol or drug abuse patient.[facility] the event this information is protected by the Federal Confidentiality of Alcohol and Drug Abuse Patient Records regulations: The Federal rules restrict any use of the information to criminally investigate or prosecute any alcohol or drug abuse patient.[facility] the event this information is protected by the Federal Confidentiality of Alcohol and Drug Abuse Patient Records regulations: The Federal rules restrict any use of the information to criminally investigate or prosecute any alcohol or drug abuse patient.[facility] the event this information is protected by the Federal Confidentiality of Alcohol and Drug Abuse Patient Records regulations: The Federal rules restrict any use of the information to criminally investigate or prosecute any alcohol or drug abuse patient.[facility] the event this information is protected by the Federal Confidentiality of Alcohol and Drug Abuse Patient Records regulations: The Federal rules restrict any use of the information to criminally investigate or prosecute any alcohol or drug abuse patient.[facility] the event this information is protected by the Federal Confidentiality of Alcohol and Drug Abuse Patient Records regulations: The Federal rules restrict any use of the information to criminally investigate or prosecute any alcohol or drug abuse patient.[facility] the event this information is protected by the Federal Confidentiality of Alcohol and Drug Abuse Patient Records regulations: The Federal rules restrict any use of the information to criminally investigate or prosecute any alcohol or drug abuse patient.[facility] the event this information is protected by the Federal Confidentiality of Alcohol and Drug Abuse Patient Records regulations: The Federal rules restrict any use of the information to criminally investigate or prosecute any alcohol or drug abuse patient.[facility] the event this information is protected by the Federal Confidentiality of Alcohol and Drug Abuse Patient Records regulations: The Federal rules restrict any use of the information to criminally investigate or prosecute any alcohol or drug abuse patient.[facility] the event this information is protected by the Federal Confidentiality of Alcohol and Drug Abuse Patient Records regulations: The Federal rules restrict any use of the information to criminally investigate or prosecute any alcohol or drug abuse patient.[facility] the event this information is protected by the Federal Confidentiality of Alcohol and Drug Abuse Patient Records regulations: The Federal rules restrict any use of the information to criminally investigate or prosecute any alcohol or drug abuse patient.[facility] the event this information is protected by the Federal Confidentiality of Alcohol and Drug Abuse Patient Records regulations: The Federal rules restrict any use of the information to criminally investigate or prosecute any alcohol or drug abuse patient.[facility] the event this information is protected by the Federal Confidentiality of Alcohol and Drug Abuse Patient Records regulations: The Federal rules restrict any use of the information to criminally investigate or prosecute any alcohol or drug abuse patient.[facility] the event this information is protected by the Federal Confidentiality of Alcohol and Drug Abuse Patient Records regulations: The Federal rules restrict any use of the information to criminally investigate or prosecute any alcohol or drug abuse patient.[facility] Reason for Visit (unrecogniz ed section and content) Specialty Diagnoses / Procedures Referred By Contac t Referred To Contact Psychiatry / ADULT PSYCHIATRY Diagnoses 4 WEEK FOLLOW UP Procedures VIDEO PSYC/PSYL EST Wes, Mikey, 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 [address] [place] [address] Derrick Gastelum, BOAT WORKER.[employer] [address] [place] [address] Referral ID Status Reason Start Date Expiration Date Visits Requested Visits Authorized [id number] Authorized Financial Clearance Required - Self Pay Patient Cleared - Qualified 100% FAS 03/06/2021 06/04/2021 99 99 Reason Comments Depression Anxiety Follow Up Reason Comments Follow Up Anxiety Depression Reason Comments No Show Reason Comments Results Reason Comments Follow Up Reason Comments Rash Rash on right hand Hair Loss Reason Comments Establish Care Care Teams (unrecognized sec tion and content) Business Systems Advisor Relationship Specialty Start Date End Date Marvin Malik MD [address] [place], [place] [id number] PCP - General Pediatrics 11/02/18 Therapist - Lacie Heath [facility] [address], [place] [address] Mental Health Provider Psych/Mental Health 04/25/20 Business Systems Advisor Relationship Specialty Start Date End Date Marvin Malik MD [address] [place], [place] [id number] PCP - General Pediatrics 11/02/18 Therapist - Lacie Heath [facility] [address], [place] [address] Mental Health Provider Psych/Mental Health 04/25/20 Business Systems Advisor Relationship Specialty Start Date End Date Marvin Malik MD [address] [place] [address] PCP - General Pediatrics 11/02/18 Therapist - Lacie Heath [facility] [address], [place], [place] [id number] Mental Health Provider Psych/Mental Health 04/25/20 Business Systems Advisor Relationship Specialty Start Date End Date Marvin Malik MD [address] [place], [place] [phone] PCP - General Pediatrics 11/02/18 Therapist - Lacie Heath, [facility] [address], [place] [address] Mental Health Provider Psych/Mental Health 04/25/20 Business Systems Advisor Relationship Specialty Start Date End Date Marvin Malik MD [address] [facility] [place] [address] PCP - General Pediatrics 11/02/18 Therapist - Lacie Heath [facility] [address], [place] [address] Mental Health Provider Psych/Mental Health 04/25/20 Business Systems Advisor Relationship Specialty Start Date End Date Marvin Malik MD [address] [facility] [place] [address] PCP - General Pediatrics 11/02/18 Therapist - Lacie Heath [facility] [address], [place] [address] Mental Health Provider Psych/Mental Health 04/25/20 Business Systems Advisor Relationship Specialty Start Date End Date Marvin Malik MD [address] [place] [address] PCP - General Pediatrics 11/02/18 Therapist - Lacie Heath [facility] [address], [place] [address] Mental Health Provider Psych/Mental Health 04/25/20 Business Systems Advisor Relationship Specialty Start Date End Date Arianna Cuevas APRN.[employer] [address] [place] [address] PCP - General Family Medicine 07/16/22 Therapist - Lacie Heath [facility] [address], [place] [address] Mental Health Provider Psych/Mental Health 04/25/20 Business Systems Advisor Relationship Specialty Start Date End Date Arianna Cuevas, BOAT WORKER.[employer] [address] [place], [place] [id number] PCP - General Family Medicine 07/16/22 Therapist - Lacie Heath, [facility] [address], [place], [place] [address] Mental Health Provider Psych/Mental Health 04/25/20 Business Systems Advisor Relationship Specialty Start Date End Date Arianna Cuevas BOAT WORKER.[employer] [address] [place], [place] [id number] PCP - General Family Medicine 07/16/22 Therapist - Lacie Heath, [facility] [address], [place], [place] [address] Mental Health Provider Psych/Mental Health 04/25/20 Business Systems Advisor Relationship Specialty Start Date End Date Arianna Cuevas BOAT WORKER.[employer] [address] [place], [place] [id number] PCP - General Family Medicine 07/16/22 Therapist - Lacie Heath, [facility] [address], [place], [place] [id number] Mental Health Provider Psych/Mental Health 04/25/20 FOR RECORDS PERTAINING TO PATIENTS WHO ARE OR HAVE BEEN ENROLLED IN A CHEMICAL DEPENDENCY/SUBSTANCEABUSE PROGRAM, SOME INFORMATION MAY BE OMITTED. This clinical summary was aggregated from multiple sources. Caution should be exercised in using it in the provision of clinical care. This summary normalizes information from multiple sources, and as a consequence, information in this document may materially change the coding, format and clinical context of patient data. In addition, data may be omitted in some cases. CLINICAL DECISIONS SHOULD BE BASED ON THE PRIMARY CLINICAL RECORDS. [facility] provides no warranty or guarantee of the accuracy or completeness of information in this document.
[2023-03-14 17:45] LABS: Absolute Lymphocyte Count 1.73 X10^3/uL (0.83-4.51); Basophil# 0.03 X10^3/uL; Basophil% 0.7 % (0-1); Eosinophil# 0.12 X10^3/uL; Eosinophils% 2.8 % (0-5); Hematocrit 49.1 % (40-54); Hemoglobin 15.4 g/dL (13.0-16.5); Lymphocyte # 1.73 X10^3/ul (0.83-4.51); Lymphocyte % 40.8 % (19-41); Mean Corp Hgb Conc 31.4 g/dL (32-36); Mean Platelet Vol. 10.2 fl (6.2-12.0); Monocyte# 0.36 X10^3/uL; Monocyte% 8.5 % (0-10); NRBC Flagged by Analyzer 0 % (0-5); Neutrophil # 1.98 X10^3/uL (2.7-7.7); Neutrophil % 46.7 % (47-70); Platelet Count 239 K/mm3 (150-450); RBC Distribution Width CV 12.2 % (11.6-14.6); RBC Distribution Width SD 38.4 fl (35.1-43.9); Red Blood Count 5.71 M/mm3 (4.6-6.2); White Blood Count 4.2 K/mm3 (4.4-11.0)
[2023-03-14 18:31] LABS: AST(SGOT) 39 U/L (15-37); Alanine Aminotransfer ALT/SGPT 42 U/L (16-61); Alkaline Phosphatase 96 U/L (45-117); Anion Gap 4 (5-15); BUN 9 mg/dL (7-18); BUN/Creat Ratio 9.5 RATIO (10-20); Calcium,Total 9.3 mg/dL (8.5-10.1); Chloride 106 mmol/L (98-107); Creatinine, Serum 0.95 mg/dL (0.70-1.30); EST Glomerular Filtration Rate 107 mL/min (>60); Est Glom Filt Rate - Afr Amer 130 mL/min (>60); Ferritin 9 ng/mL (26-388); Globulin 3.9 g/dL (2.2-4.2); Glucose 88 mg/dL (74-106); Iron 98 ug/dL (65-175); Iron Binding Capacity,Total 409 ug/dL (250-450); Potassium 3.9 mmol/L (3.5-5.1); Protein, Total 7.9 g/dL (6.4-8.2); Sodium Level 139 mmol/L (136-145); T4 Free Direct 0.83 ng/dL (0.76-1.46); Thyroid Stim Hormone (TSH) 2.12 uIU/mL (0.358-3.74)
[2023-03-14 18:41] LABS: T3 Total - Triiodothyronine 1.32 ng/mL (0.6-1.81)
[2023-03-18 13:07] LABS: ANTINUCLEAR ANTIBODIES DIRECT Negative (Negative); Vitamin D 1,25-Dihydroxy 52.6 pg/mL (24.8-81.5)
[2023-03-20 06:10] LABS: Thyroid Peroxidase AB < 9 IU/mL (0-34); Zinc, Plasma or Serum 65 ug/dL (44-115)
== END | disposition home or self-care (01) ==
PROVIDERS: Referring Provider Physician Assistant Medical; Visit Provider Physician Assistant Medical
DX: L64.8 Other androgenic alopecia (principal); L30.1 Dyshidrosis [pompholyx]
CPT/HCPCS: 36415; 80053; 82306; 82652; 82728; 83540; 83550; 84439; 84443; 84480; 84630; 85025; 86038; 86376